=== PATIENT | female | born 1965 ===

== ENCOUNTER 2020-11-26 09:49 | Outpatient (REF) | payer OTHER, SELFPAY | END 2020-11-26 09:50 | disposition home or self-care (01) | LOC: HO.LAB 09:49 | PROVIDERS: Visit Provider Internal Medicine | DX: Z20.822 Contact with and (suspected) exposure to COVID-19 (principal) | CPT/HCPCS: C9803; U0003; U0005 ==

== ENCOUNTER 2020-12-06 09:28 | Outpatient (REF) | payer OTHER, SELFPAY | END 2020-12-06 09:29 | disposition home or self-care (01) | LOC: HO.LAB 09:28 | PROVIDERS: Visit Provider Internal Medicine | DX: Z20.822 Contact with and (suspected) exposure to COVID-19 (principal) | CPT/HCPCS: C9803; U0003; U0005 ==

== ENCOUNTER 2021-04-26 08:40 | Outpatient (REF) | payer OTHER, SELFPAY ==
[2021-04-26 10:07] LABS: Estimated Average Glucose 114 mg/dL; Hemoglobin A1c % 5.6 %
[2021-04-26 10:22] LABS: Alanine Aminotransferase 43 U/L (0-31); Albumin Level 4.3 g/dL (3.5-5.0); Alkaline Phosphatase 64 U/L (39-117); Anion Gap 10 (12-20); Aspartate Amino Transferase 29 U/L (5-31); Bilirubin Total 0.7 mg/dL (0.0-1.0); Blood Urea Nitrogen 12 mg/dL (9-16); Calcium 9.8 mg/dL (8.4-10.2); Carbon Dioxide 28 mmol/L (22-29); Chloride 107 mmol/L (96-108); Cholesterol 225 mg/dL; Estimated Glomerular Filt Rate > 60; Glucose Fasting 101 mg/dL (60-99); HDL Cholesterol 46 mg/dL; LDL Cholesterol Calculated 133 mg/dl; Potassium 4.4 mmol/L (3.3-5.1); Sodium 141 mmol/L (135-145); Total Protein 7.2 g/dL (6.5-8.0); Triglycerides 230 mg/dL
[2021-04-26 10:27] LABS: TSH reflex Free T4 1.62 uIU/mL (0.32-4.0)
== END 2021-04-26 08:41 | disposition home or self-care (01) ==
LOC: HO.LAB 08:40
PROVIDERS: PCP Physician Assistant; Visit Provider Physician Assistant
DX: Z13.29 Encounter for screening for other suspected endocrine disorder (principal); Z13.220 Encounter for screening for lipoid disorders
CPT/HCPCS: 36415; 80053; 80061; 83036; 84443

== ENCOUNTER 2021-05-02 09:44 | Outpatient (REF) | payer OTHER, SELFPAY | END 2021-05-02 09:45 | disposition home or self-care (01) | LOC: HO.LAB 09:44 | PROVIDERS: PCP Physician Assistant; Visit Provider Internal Medicine | DX: Z20.822 Contact with and (suspected) exposure to COVID-19 (principal) | CPT/HCPCS: C9803; U0003; U0005 ==

== ENCOUNTER 2021-05-16 11:53 | Outpatient (REF) | payer OTHER, SELFPAY | END 2021-05-16 11:54 | disposition home or self-care (01) | LOC: HO.LAB 11:53 | PROVIDERS: Visit Provider Internal Medicine | DX: Z20.822 Contact with and (suspected) exposure to COVID-19 (principal) | CPT/HCPCS: U0003; U0005 ==

== ENCOUNTER 2022-06-13 11:51 | Outpatient (REF) | payer OTHER, SELFPAY ==
[2022-06-15 23:22] LABS: HPV mRNA E6/E7 rflx Not Detected (Not Detected)
== END 2022-06-13 11:52 | disposition home or self-care (01) ==
LOC: HO.LNP 11:51
PROVIDERS: Visit Provider Obstetrics & Gynecology
DX: Z01.419 Encounter for gynecological examination (general) (routine) without abnormal findings (principal)
CPT/HCPCS: 87624; 88142

== ENCOUNTER 2022-07-15 09:04 | Outpatient (REF) | payer OTHER, SELFPAY ==
--- NOTE | ~2022-07-15 | MM_ITS ---
EXAMINATION: MM SCREENING DIGITAL BREAST TOMOSYNTHESIS, BILATERAL CLINICAL INFORMATION: Screening. Asymptomatic. The lifetime risk of breast cancer based on the Tyrer-Cuzick Model is 5%. COMPARISON: Mammography: 04/11/2019, 04/04/2018, 05/28/2015 TECHNIQUE: Digital breast tomosynthesis is performed in both the craniocaudal and mediolateral oblique views along with computer-aided detection (CAD). Synthesized 2D images are generated from the tomosynthesis. FINDINGS: There are scattered areas of fibroglandular density (ACR BI-RADS breast composition Category b). There are no significant masses, abnormal calcifications, or other abnormalities. Parenchymal pattern is similar to prior studies. There is incidental intramammary node again seen upper outer quadrant right breast. No developing density. Mild nipple retraction is chronic. No significant changes. MM/MM tomosynthesis screening BI IMPRESSION: No mammographic evidence of malignancy. ASSESSMENT: BI-RADS 2: Benign RECOMMENDATION: Routine annual mammography screening. This patient's information was entered into a reminder system with a target due date for their next mammogram.
== END 2022-07-15 09:05 | disposition home or self-care (01) ==
LOC: HO.MAMMO 09:04
PROVIDERS: PCP Physician Assistant; Visit Provider Obstetrics & Gynecology
DX: Z12.31 Encounter for screening mammogram for malignant neoplasm of breast (principal)
CPT/HCPCS: 77063; 77067

== ENCOUNTER 2023-05-22 09:37 | Outpatient (AMB) | payer OTHER, SELFPAY ==
--- NOTE | 2023-05-22 09:42 | MHC.PC.OV ---
Vital Signs 05/22/23 09:43 Height 5 ft 4 in Weight 141 lb BMI 24.2 BP 138/72 Blood Pressure Location Lt brachial Position Sitting Pulse 70 Pulse Source Pulse Oximeter Pulse Oximetry (%) 97 Oxygen Delivery Method Room Air Intake Visit Reasons: Annual Physical Intake Note: patient here for a physical exam, issues with throat Plasma Table Operator Required: No Accompanied by: Self / Same As Patient Allergies No Known Allergies [No Known Allergies*] Allergy (Verified 05/22/23 10:00) Medication List - Last Reconciled 05/22/23 by Sesar Prado PA-C albuterol sulfate 2.5 mg (3 mL) inhalation Q6H PRN 15 days albuterol sulfate 90 mcg/actuation (ProAir HFA) 2 puffs PO Q4H PRN ergocalciferol (vitamin D2) (Vitamin D2) 1,250 mcg PO QWEEK vitamin E (dl, acetate) 400 units PO DAILY Tobacco use date assessed: 05/22/23 Dental Screening Dental Screen Date: 05/22/23 Did you have a dental visit in the last 12 months?: No Did you have a dental problem in the last 6 months where you did not have access to dental care?: No Was dental information given to patient?: Patient has dentist HPI Annual Physical HPI Details Patient is a 57-year-old female here today for a annual physical. Patient has a past medical history significant for depression, GERD, migraines, asthma. Concerns--> Report having issues with her throat while sleeping flat. She feels her throat closes at night while sleeping. She reports these episodes only happen twice per month She attributes these symptoms to perhaps worsening asthma. PLAN: Will send for PFT testing and sleep study to evaluate for obstructive sleep apnea. [place] Sleepiness Scale score of 2 today in office. .. Asthma: REports her asthma has been stable. Report her ALAN inhaler works well. .. Migraine: Migraines have been stable, has not had any severe migraines as of late. Was using sumatriptan with good effect. Would like a refill in case migraines reoccur. .. Vitamin-D deficiency: She does use weekly vitamin-D. MAmmo: Mammogram done and July of 2022-normal .. ECOLOGY PROFESSOR: Seeing ECOLOGY PROFESSOR here in [facility] up to date Colon cancer screening: Had a sister whom from colon cancer at age 40. needs colonoscopy [facility] Medical History Asthma Surgical History H/O tubal ligation Family History Sister Colon cancer, Onset Age: 40 Social History (Updated 05/22/23 @ 10:10 by Sesar Prado PA-C) Housing: Apartment Alcohol intake: never Patient Tobacco Use Status: Former Tobacco user e-Cigarette/Vaping Use: Never Used Second Hand Smoke Exposure: No service: No Current occupational status: unemployed Cognitive needs: No Hearing needs: No Vision needs: Yes Female Reproductive History Menstrual Age of Menarche: 11 Questionnaire PHQ-9 Over the last 2 weeks, how often have you been bothered by any of the following problems? 1. Little interest or pleasure in doing things: not at all 2. Feeling down, depressed, or hopeless: several days 3. Trouble falling or staying asleep, or sleeping too much: not at all 4. Feeling tired or having little energy: several days 5. Poor appetite or overeating: not at all 6. Feeling bad about yourself - or that you are a failure or have let yourself or your family down: not at all 7. Trouble concentrating on things, such as reading the newspaper or watching television: not at all 8. Moving or speaking so slowly that other people could have noticed. Or the opposite - being so fidgety or restless that you have been moving around a lot more than usual: not at all 9. Thoughts that you would be better off or of hurting yourself in some way: not at all Total score: 2 Depression Screening Interpretation: Negative Depression Screening Done: Yes 31836 - PHQ-9 Billing: Yes Source: Developed by Drs. Lance Arellano, Michaelle Valverde, Jun Rios and colleagues, with an educational faizan from [employer]. Thrive Questionnaire Date Thrive assessed: 05/22/23 I am a: Patient What is your living situation today?: I have a steady place to live Within the past 12 months, did the food you bought not last and you didn't have the money to get more?: Never true Within the past 12 months, did you worry whether your food would run out before you got money to buy more?: Never true Do you have trouble paying for medicines?: No Do you have trouble getting transportation to medical appointments?: No Do you have trouble paying your heating and electricity bill?: No Do you have trouble taking care of your child, family member or friend?: No Do you have trouble with day-to-day activities such as bathing, preparing meals, shopping, managing finances, etc.?: No Are you currently unemployed and looking for a job?: No Are you interested in more education?: No Please select the resources that you would like help with: None Currently or been in a relationship where the following occur: no concerns reported AUDIT C Alcohol Use Questionnaire (AUDIT-C) 1. How often do you have a drink containing alcohol?: Never Total Score: 0 ROMANA-7 AMB Questionnaire ROMANA-7 Date ROMANA - 7 assessed: 05/22/23 Feeling nervous, anxious, or on edge: 0 = Not at all Not being able to stop or control worryin = Not at all Worrying too much about different things: 0 = Not at all Trouble relaxin = Not at all Being so restless that it is hard to sit still: 0 = Not at all Becoming easily annoyed or irritable: 0 = Not at all Feeling afraid as if something awful might happen: 0 = Not at all Total ROMANA-7 score (0-4 normal; 5-9 mild; 10-14 moderate; 15-21 severe): 0 Source: Developed by Drs. Lance Arellano, Michaelle Valverde, Jun Rios and colleagues, with an educational faizan from [employer]. ROMANA-7 Assessment Billing ROMANA-7 Assessment Tool: ROMANA-7 Assessment 05581 Review of Systems Const Denies body aches, Denies chills, Denies excessive sweating, Denies fatigue, Denies fever(s) and Denies headache(s) Eyes Denies blurry vision ENT Denies dysphagia, Denies vertigo, Denies dizziness, Denies headache(s), Denies hearing loss and Denies tinnitus Card Denies chest pain, Denies chest pain with activity, Denies syncope, Denies irregular heart rhythm and Denies dyspnea Resp Denies chest congestion, Denies cough, Denies hemoptysis, Denies dyspnea and Denies wheezing GI Denies abdominal pain, Denies melena, Denies hematochezia, Denies coffee ground emesis, Denies dysphagia, Denies diarrhea, Denies nausea and Denies vomiting Denies urinary frequency, Denies dysuria, Denies urinary hesitancy and Denies urinary urgency Musc Denies arthralgias, Denies limited range of motion, Denies muscle cramps and Denies muscle weakness Skin/Breast Denies rash and Denies skin ulcer Neuro Denies Abnormal speech present, Denies confusion, Denies vertigo, Denies dizziness, Denies syncope, Denies headache(s), Denies memory loss and Denies seizure-like activity Psych Reports abnormal sleep pattern, Denies anxiety, Denies confusion, Denies depression, Denies memory loss, Denies panic attacks and Denies paranoia Endo Denies excessive sweating, Denies fatigue, Denies flushing, Denies polydipsia and Denies polyuria Aller/Immun Denies wheezing Physical exam (Primary Care) Vital Signs: Last Vital Signs Pulse 70 05/22/23 09:43 BP 138/72 05/22/23 09:43 Pulse Ox 97 05/22/23 09:43 Oxygen Delivery Method Room Air 05/22/23 09:43 BMI result Body Mass Index 24.2 Tobacco/Smoking Status: Tobacco use Status Tobacco use date assessed 05/22/23 05/22/23 09:49 Patient Tobacco Use Status Former Tobacco user 05/22/23 10:10 e-Cigarette/Vaping Use Never Used 05/22/23 10:10 PHQ-9: PHQ-9 Score PHQ-9: Total score 2 05/22/23 10:01 Depression Screening Interpretation: Negative Thrive Assessment: Date of Thrive Assessment Date Thrive assessed 05/22/23 05/22/23 09:49 Currently or been in a relationship where the following occur: no concerns reported Const General: cooperative, comfortable, no acute distress, alert and awake; No confusion Orientation/consciousness: oriented to person, oriented to place, patient oriented x3 and No confusion HENMT Head: Yes normocephalic Ears: external ears normal and TM's normal bilaterally Face and sinus: No sinus tenderness Mouth: Normal oral and palatal mucosa present and tongue normal Teeth and gingiva: dentition normal and gingiva normal Throat: Yes posterior oropharynx normal, Yes tonsils normal and Yes uvula midline Eyes Conjunctivae: conjunctivae normal Sclerae: sclerae normal Pupils: Equal, round and reactive pupils present EOM: EOMs intact bilaterally Direct Ophthalmoscopy: No no photophobia Neck Neck: Yes no lymphadenopathy, No tender and Yes no JVD Thyroid: Thyroid normal Carotids: no bruits Chest Chest palpation & inspection: no tenderness Resp Effort & Inspection: normal respiratory effort, no audible wheezes, not labored and no stridor Auscultation: no crackles, no rales, no rhonchi and no wheezes Cardio Jugular venous distension: no JVD Rate: regular rate, not bradycardic and not tachycardic Rhythm: regular rhythm Bruits: no carotid bruits Peripheral pulses: Peripheral pulses 2+ throughout GI Inspection: Yes normal to inspection, No abdominal wall ecchymosis and No visible herniation Palpation (GI): Soft to palpation, nontender, no guarding, not rigid and No hepatosplenomegaly present Auscultation: normoactive bowel sounds General: Yes no CVA tenderness Back/Spine/Pelvis Back: no CVA tenderness and No back tenderness Cervical Spine: cervical ROM normal Thoracic/Lumbar Spine: thoracic and lumbar spine normal to inspection, straight leg raise negative bilaterally, No thoraco-lumbar ROM limited and No lumbar spinal tenderness Skin Lesions: no lesions Rashes: no rashes Wounds: no wounds Neuro General: oriented to person, oriented to place, patient oriented x3, CN's II-XI intact bilaterally and No confusion Cranial nerves: Yes Equal, round and reactive pupils present and Yes Normal accommodation reflex present Cognition (Neuro): normal cognition Speech: No Abnormal speech present Gait exam (Neuro): Normal gait present Motor exam (neuro): 5/5 motor strength present throughout Extrem Right upper extremity: full ROM; no cyanosis Left upper extremity: full ROM; no cyanosis Right lower extremity: no edema Left lower extremity: no edema Psych Appearance: grossly normal Mental Status: mental status grossly normal Affect: normal affect Attitude: cooperative Thought process: Normal thought process present Office Procedures Flu Questionnaire Does the patient have a severe egg allergy?: No Immunizations flu vacc [id number] 6mos up(PF) 60 mcg(15 mcgx4)/0.5 mL IM syringe Performing Provider: Sesar Prado PA-C [facility] Documented (not given) by: BILLIE Shannon on 05/22/23 09:50 Reason Not Given: Patient Refused Assessment and Plan Assessment & Plan (1) Annual physical exam: Code(s): Z00.00 - Encounter for general adult medical examination without abnormal findings (2) Family history of colon cancer: Code(s): Z80.0 - Family history of malignant neoplasm of digestive organs Plan: As per HPI had a sister whom from colon cancer at age 40. Needs screening colonoscopy (3) Asthma: Code(s): J45.909 - Unspecified asthma, uncomplicated Qualifiers: Asthma severity: mild Asthma persistence: intermittent Asthma complication type: uncomplicated Qualified Code(s): J45.20 - Mild intermittent asthma, uncomplicated Plan: Patient does use an albuterol inhaler on a p.r.n. basis with good effect. She denies any recent exacerbations of her asthma. She does report some nighttime awakenings with some pulmonary/throat issues. (4) Screening for diabetes mellitus (DM): Code(s): Z13.1 - Encounter for screening for diabetes mellitus (5) Vitamin D deficiency: Code(s): E55.9 - Vitamin D deficiency, unspecified Plan: Continues on once weekly vitamin-D. Will recheck vitamin-D level. (6) BREANA (obstructive sleep apnea): Code(s): G47.33 - Obstructive sleep apnea (adult) (pediatric) Plan: [place] Sleepiness Scale score of 2. (7) Insomnia: Code(s): G47.00 - Insomnia, unspecified Qualifiers: Insomnia type: primary Qualified Code(s): F51.01 - Primary insomnia Plan: She continues to suffer with insomnia. Has a hard time getting to sleep. Has tried melatonin and sleep hygiene techniques without much relief. She is willing to try hydroxyzine 10 mg 1 hour before bed. Orders: Orders RT home sleep study Today G47.33 - Obstructive sleep apnea (adult) (pediatric) Comprehensive [place]. Panel Fast Today Z13.1 - Encounter for screening for diabetes mellitus Complete Blood Count no Diff Today J45.909 - Unspecified asthma, uncomplicated Vitamin D 25-OH Total Today E55.9 - Vitamin D deficiency, unspecified PFT pulmonary function test Today J45.909 - Unspecified asthma, uncomplicated Influenza [id number] Immunization Today Z23 - Encounter for immunization TSH reflex Free T4 Today R63.5 - Abnormal weight gain Referrals Gastroenterology Referral Z80.0 - Family history of malignant neoplasm of digestive organs Medications: New hydroxyzine HCl 10 mg PO BEDTIME 15 days 15 tabs 0RF F41.9 - Anxiety disorder, unspecified, F51.01 - Primary insomnia Refilled albuterol sulfate 2.5 mg (3 mL) inhalation Q6H 15 days PRN 180 mL 0RF shortness of breath or wheezing J45.909 - Unspecified asthma, uncomplicated Coding Level of Care Code Est Pt Prev Care 40-64y(16576) Diagnoses Annual physical exam Z00.00 Family history of colon cancer Z80.0 Mild intermittent asthma without complication J45.20 Asthma severity: mild Asthma persistence: intermittent Asthma complication type: uncomplicated Screening for diabetes mellitus (DM) Z13.1 Vitamin D deficiency E55.9 BREANA (obstructive sleep apnea) G47.33 Primary insomnia F51.01 Insomnia type: primary Additional Codes ROMANA-7 Assessment Billing - ROMANA-7 Assessment Tool: ROMANA-7 Assessment [id number] ([id number])
[2023-05-22 09:43] VITALS: BP 138/72; PULSE 70; O2SAT 97; BMI 24.2
== END 2023-05-22 10:30 | disposition home or self-care (01) ==
PROVIDERS: PCP Physician Assistant; Visit Provider Physician Assistant
DX: Z00.00 Encounter for general adult medical examination without abnormal findings (principal); J45.20 Mild intermittent asthma, uncomplicated; G47.33 Obstructive sleep apnea (adult) (pediatric); E55.9 Vitamin D deficiency, unspecified; Z80.0 Family history of malignant neoplasm of digestive organs; F51.01 Primary insomnia
CPT/HCPCS: 99396

== ENCOUNTER 2023-10-27 09:55 | Outpatient (REF) | payer OTHER, SELFPAY | END 2023-10-27 09:56 | disposition home or self-care (01) | LOC: HO.MAMMO 09:55 | PROVIDERS: PCP Physician Assistant; Visit Provider Physician Assistant | DX: Z12.31 Encounter for screening mammogram for malignant neoplasm of breast (principal) | CPT/HCPCS: 77063; 77067 ==

== ENCOUNTER → 2023-10-27 10:45 | Outpatient (BNV) | payer OTHER, SELFPAY | PROVIDERS: PCP Physician Assistant; Visit Provider Radiology Diagnostic Radiology | DX: Z12.31 Encounter for screening mammogram for malignant neoplasm of breast (principal) | CPT/HCPCS: 77063; 77067 ==

== ENCOUNTER 2023-12-18 09:21 | Outpatient (AMB) | payer OTHER, SELFPAY ==
--- NOTE | 2023-12-18 09:23 | MHC.PC.OV ---
Vital Signs 12/18/23 09:30 Height 5 ft 4 in Weight 142 lb BMI 24.4 BP 126/70 Blood Pressure Location Lt brachial Position Sitting Pulse 8 L Pulse Source Pulse Oximeter Pulse Oximetry (%) 96 Oxygen Delivery Method Room Air Intake Visit Reasons: Can not hear out of left ear Intake Note: The patient presents with a recent onset of left ear hearing loss, accompanied by feelings of imbalance over the last 48 hours. 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 Accompanied by: Self / Same As Patient Allergies No Known Allergies [No Known Allergies*] Allergy (Verified 12/18/23 09:39) Medication List - Last Reconciled 12/18/23 by Sesar Prado PA-C albuterol sulfate 90 mcg/actuation (ProAir HFA) 2 puffs PO Q4H PRN albuterol sulfate 2.5 mg (3 mL) inhalation Q6H PRN 15 days ergocalciferol (vitamin D2) (Vitamin D2) 1,250 mcg PO QWEEK hydroxyzine HCl 10 mg PO BEDTIME 15 days vitamin E (dl, acetate) 400 units PO DAILY Tobacco use date assessed: 12/18/23 Dental Screening Dental Screen Date: 12/18/23 Did you have a dental visit in the last 12 months?: Yes Did you have a dental problem in the last 6 months where you did not have access to dental care?: No Was dental information given to patient?: Patient has dentist HPI Can not hear out of left ear HPI Details Patient is a 58-year-old female here today for problem visit. Patient has a past medical history significant for depression, GERD, migraines, asthma. She reports having an issue with hearing at over left ear and some balance disruption over the last 5 days. No ear pain or drainage. [facility] Medical History Asthma Surgical History H/O tubal ligation Family History Sister Colon cancer, Onset Age: 40 Social History Housing: Apartment Alcohol intake: never Patient Tobacco Use Status: Former Tobacco user e-Cigarette/Vaping Use: Never Used Second Hand Smoke Exposure: No service: No Current occupational status: unemployed Cognitive needs: No Hearing needs: No Vision needs: Yes Female Reproductive History Menstrual Age of Menarche: 11 Questionnaire PHQ-9 Over the last 2 weeks, how often have you been bothered by any of the following problems? 1. Little interest or pleasure in doing things: not at all 2. Feeling down, depressed, or hopeless: not at all 3. Trouble falling or staying asleep, or sleeping too much: not at all 4. Feeling tired or having little energy: not at all 5. Poor appetite or overeating: not at all 6. Feeling bad about yourself - or that you are a failure or have let yourself or your family down: not at all 7. Trouble concentrating on things, such as reading the newspaper or watching television: not at all 8. Moving or speaking so slowly that other people could have noticed. Or the opposite - being so fidgety or restless that you have been moving around a lot more than usual: not at all 9. Thoughts that you would be better off or of hurting yourself in some way: not at all Total score: 0 Depression Screening Interpretation: Negative Depression Screening Done: Yes 21052 - PHQ-9 Billing: Yes Source: Developed by Drs. Lance Arellano, Michaelle Valverde, Jun Rios and colleagues, with an educational faizan from [employer]. Thrive Questionnaire Date Thrive assessed: 12/18/23 I am a: Patient What is your living situation today?: I have a steady place to live Within the past 12 months, did the food you bought not last and you didn't have the money to get more?: Never true Within the past 12 months, did you worry whether your food would run out before you got money to buy more?: Never true Do you have trouble paying for medicines?: No Do you have trouble getting transportation to medical appointments?: No Do you have trouble paying your heating and electricity bill?: No Do you have trouble taking care of your child, family member or friend?: No Do you have trouble with day-to-day activities such as bathing, preparing meals, shopping, managing finances, etc.?: No Are you currently unemployed and looking for a job?: No Are you interested in more education?: No Please select the resources that you would like help with: None Currently or been in a relationship where the following occur: no concerns reported THRIVE Score: 0 AUDIT C Alcohol Use Questionnaire (AUDIT-C) 1. How often do you have a drink containing alcohol?: Never 3. How often do you have six or more drinks on one occasion?: Never Total Score: 0 ROMANA-7 AMB Questionnaire ROMANA-7 Date ROMANA - 7 assessed: 12/18/23 Feeling nervous, anxious, or on edge: 0 = Not at all Not being able to stop or control worryin = Not at all Worrying too much about different things: 0 = Not at all Trouble relaxin = Not at all Being so restless that it is hard to sit still: 0 = Not at all Becoming easily annoyed or irritable: 0 = Not at all Feeling afraid as if something awful might happen: 0 = Not at all Total ROMANA-7 score (0-4 normal; 5-9 mild; 10-14 moderate; 15-21 severe): 0 Source: Developed by Drs. Lance Arellano, Michaelle Valverde, Jun Rios and colleagues, with an educational faizan from [employer]. ROMANA-7 Assessment Billing ROMANA-7 Assessment Tool: ROMANA-7 Assessment 10704 Review of Systems Const Denies headache(s) Eyes Denies loss of vision ENT Denies vertigo, Denies dizziness, Denies headache(s) and Denies sore throat Card Denies chest pain, Denies leg edema and Denies lightheadedness Resp Denies cough, Denies hemoptysis and Denies wheezing GI Denies abdominal pain, Denies melena, Denies constipation, Denies diarrhea and Denies vomiting Denies urinary frequency, Denies dysuria and Denies urinary urgency Musc Denies arthralgias, Denies joint swelling, Denies numbness and Denies tingling Neuro Denies Abnormal speech present, Denies behavioral changes, Denies vertigo, Denies dizziness, Denies headache(s), Denies loss of vision, Denies memory loss, Denies numbness and Denies tingling Psych Denies anxiety, Denies behavioral changes, Denies depression, Denies memory loss and Denies panic attacks Favio/Lymph Denies easy bleeding and Denies easy bruising Aller/Immun Denies wheezing Physical exam (Primary Care) Vital Signs: Last Vital Signs Pulse 8 L 12/18/23 09:30 BP 126/70 12/18/23 09:30 Pulse Ox 96 12/18/23 09:30 Oxygen Delivery Method Room Air 12/18/23 09:30 BMI result Body Mass Index 24.4 Tobacco/Smoking Status: Tobacco use Status Tobacco use date assessed 12/18/23 12/18/23 09:37 Patient Tobacco Use Status Former Tobacco user 12/18/23 09:23 e-Cigarette/Vaping Use Never Used 12/18/23 09:23 PHQ-9: PHQ-9 Score PHQ-9: Total score 0 12/18/23 09:42 Depression Screening Interpretation: Negative Thrive Assessment: Date of Thrive Assessment Date Thrive assessed 12/18/23 12/18/23 09:37 Currently or been in a relationship where the following occur: no concerns reported Const General: healthy appearing, no acute distress, alert and awake Nutritional Appearance: well nourished Orientation/consciousness: oriented to person, oriented to place and oriented to time HENMT Other: LEFT EXTERNAL CANAL WITH CERUMEN IMPACTION. SLIGHT ERYTHEMA OF THE EXTERNAL CANAL Ears: TM's normal bilaterally General nose exam: Normal nasal mucous membranes and turbinates present Eyes Conjunctivae: conjunctivae normal Sclerae: sclerae normal Pupils: Equal, round and reactive pupils present Neck Neck: Yes no lymphadenopathy and Yes no JVD Thyroid: Thyroid normal Carotids: no bruits Resp Effort & Inspection: normal respiratory effort and not tachypneic Auscultation: no crackles, no rales, no rhonchi and no wheezes Cardio Rate: regular rate Rhythm: regular rhythm Heart sounds: no murmurs and normal S1 and S2 GI Palpation (GI): Soft to palpation, nontender, no hepatomegaly and no splenomegaly Auscultation: normal bowel sounds Skin General skin exam: no rashes or lesions noted and dry skin Neuro General: oriented to person, oriented to place and oriented to time Cranial nerves: Yes Equal, round and reactive pupils present Speech: No Abnormal speech present Gait exam (Neuro): Normal gait present Motor exam (neuro): no tremor noted Extrem Right upper extremity: full ROM Left upper extremity: full ROM Right lower extremity: full ROM; no edema Left lower extremity: full ROM; no edema Psych Mental Status: mental status grossly normal Speech and movement: Normal speech and movement present Affect: normal affect Attitude: cooperative Thought process: Normal thought process present Office Procedures Cerumen Removal From which ear canal was the cerumen removed: left Removal: otoscope w/curette Notes: no complications [id number] Irrigation/Lavage Assessment and Plan Assessment & Plan (1) Left ear impacted cerumen: Code(s): H61.22 - Impacted cerumen, left ear Plan: Patient with left cerumen impaction. Cleared after lavage. Patient tolerated procedure well though was left with some erythema of the external canal. Will supply patient with antibiotic ear drops. (2) Otitis externa, left: Code(s): H60.92 - Unspecified otitis externa, left ear Qualifiers: Chronicity: acute Otitis externa type: unspecified type Qualified Code(s): H60.502 - Unspecified acute noninfective otitis externa, left ear Medications: New [id number] 3.5-10,000-1 mg/mL-unit/mL-% 4 drps otic (ear) left Q8H 10 mL 0RF 7 days H61.22 - Impacted cerumen, left ear Coding Level of Care Code Est Pt Level 3 (69589) Diagnoses Left ear impacted cerumen H61.22 Acute otitis externa of left ear, unspecified type H60.502 Chronicity: acute Otitis externa type: unspecified type CPT Codes Office Procedure - CPT: 47341-Gqx Irrigation/Lavage ([id number]) Additional Codes ROMANA-7 Assessment Billing - ROMANA-7 Assessment Tool: ROMANA-7 Assessment 88190 ([id number])
[2023-12-18 09:30] VITALS: BP 126/70; PULSE 8; O2SAT 96; BMI 24.4
== END 2023-12-18 09:59 | disposition home or self-care (01) ==
PROVIDERS: PCP Physician Assistant; Visit Provider Physician Assistant
DX: H61.22 Impacted cerumen, left ear (principal)
CPT/HCPCS: 69210; 99213

== ENCOUNTER 2024-05-27 09:06 | Outpatient (AMB) | payer OTHER, SELFPAY ==
[2024-05-27 09:34] VITALS: BP 110/72; PULSE 85; O2SAT 98; BMI 23.2
--- NOTE | 2024-05-27 09:34 | A.OFFPC_ITS ---
Vital Signs 05/27/24 09:34 Height 5 ft 4 in Weight 135 lb 6 oz BMI 23.2 BP 110/72 Blood Pressure Location Lt brachial Position Sitting Pulse 85 Pulse Source Pulse Oximeter Pulse Oximetry (%) 98 Oxygen Delivery Method Room Air Intake Visit Reasons: pe Intake Note: Patient is here today for a physical. Pt declined flu vaccine today. Cyber Security Required: No Accompanied by: Self / Same As Patient Allergies No Known Allergies [No Known Allergies*] Allergy (Verified 05/27/24 09:55) Medication List - Last Reconciled 05/27/24 by Sesar Prado PA-C albuterol sulfate 90 mcg/actuation (ProAir HFA) 2 puffs PO Q4H PRN albuterol sulfate 2.5 mg (3 mL) inhalation Q6H PRN 15 days ergocalciferol (vitamin D2) (Vitamin D2) 1,250 mcg PO QWEEK hydroxyzine HCl 10 mg PO BEDTIME 15 days [id number]-[id number]-UV 3.5-10,000-1 mg/mL-unit/mL-% 4 drps otic (ear) left Q8H 7 days vitamin E (dl, acetate) 400 units PO DAILY Tobacco use date assessed: 12/18/23 Dental Screening Dental Screen Date: 12/18/23 HPI pe HPI Details Patient is a 58-year-old female here today for a annual physical. Patient has a past medical history significant for depression, GERD, migraines, asthma. Anxiety: Patient reports she has been dealing with more anxiety as of late. Dean 7 score positive moderate anxiety. She reports having difficulty with sleeping due to racing thoughts. She does have some personal issues going on at home. She is willing to restart hydroxyzine before bed to help sleep. She is not interested in mental health therapy at this time. .. Asthma: REports her asthma has been stable. Report her ALAN inhaler works well. Unfortunately she reports smoking cigarettes again. .. Migraine: Migraines have been stable, has not had any severe migraines as of late. Was using sumatriptan with good effect. Would like a refill in case migraines reoccur. .. Vitamin-D deficiency: She does use weekly vitamin-D. MAmmo: Mammogram done in October of 2023 BI-RADS 1 .. 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 VAccine: declines COVID or FLu, UTD with Tdap Colon cancer screening: Had a sister whom from colon cancer at age 40. needs colonoscopy PFSH Medical History Asthma Surgical History H/O tubal ligation Family History Sister Colon cancer, Onset Age: 40 Social History (Updated 05/27/24 @ 10:00 by Sesar Prado PA-C) Housing: Apartment Alcohol intake: current Alcohol intake frequency: a few times a month Alcohol type: beer Patient Tobacco Use Status: Current everyday Tobacco user e-Cigarette/Vaping Use: Never Used Second Hand Smoke Exposure: No service: No Current occupational status: unemployed Cognitive needs: No Hearing needs: No Vision needs: Yes Female Reproductive History Menstrual Age of Menarche: 11 Questionnaire PHQ-9 Over the last 2 weeks, how often have you been bothered by any of the following problems? 1. Little interest or pleasure in doing things: several days 2. Feeling down, depressed, or hopeless: several days 3. Trouble falling or staying asleep, or sleeping too much: nearly every day 4. Feeling tired or having little energy: more than half the days 5. Poor appetite or overeating: nearly every day 6. Feeling bad about yourself - or that you are a failure or have let yourself or your family down: several days 7. Trouble concentrating on things, such as reading the newspaper or watching television: several days 8. Moving or speaking so slowly that other people could have noticed. Or the opposite - being so fidgety or restless that you have been moving around a lot more than usual: not at all 9. Thoughts that you would be better off or of hurting yourself in some way: not at all Total score: 12 Depression Screening Interpretation: Positive Depression Screening Follow-up: Existing condition Depression Screening Done: Yes 07777 - PHQ-9 Billing: Yes Source: Developed by Drs. Lance Arellano, Michaelle Valverde, Jun Rios and colleagues, with an educational faizan from [employer]. Thrive Questionnaire Date Thrive assessed: 05/27/24 I am a: Patient What is your living situation today?: I have a steady place to live Within the past 12 months, did the food you bought not last and you didn't have the money to get more?: Often true Within the past 12 months, did you worry whether your food would run out before you got money to buy more?: Often true Do you have trouble paying for medicines?: I choose not to answer this question Do you have trouble getting transportation to medical appointments?: Yes Do you have trouble paying your heating and electricity bill?: Yes Do you have trouble taking care of your child, family member or friend?: I choose not to answer this question Do you have trouble with day-to-day activities such as bathing, preparing meals, shopping, managing finances, etc.?: No Are you currently unemployed and looking for a job?: No Are you interested in more education?: No Please select the resources that you would like help with: None Currently or been in a relationship where the following occur: No concerns reported THRIVE Score: 4 AUDIT C Alcohol Use Questionnaire (AUDIT-C) 1. How often do you have a drink containing alcohol?: Monthly or less 2. How many drinks containing alcohol do you have on a typical day when you are drinking?: 1 or 2 3. How often do you have six or more drinks on one occasion?: Never Total Score: 1 DEAN-7 AMB Questionnaire DEAN-7 Date DEAN - 7 assessed: 05/27/24 Feeling nervous, anxious, or on edge: 3 = Nearly every day Not being able to stop or control worryin = Several days Worrying too much about different things: 3 = Nearly every day Trouble relaxin = Nearly every day Being so restless that it is hard to sit still: 0 = Not at all Becoming easily annoyed or irritable: 0 = Not at all Feeling afraid as if something awful might happen: 3 = Nearly every day Total DEAN-7 score (0-4 normal; 5-9 mild; 10-14 moderate; 15-21 severe): 13 Source: Developed by Drs. Lance Arellano, Michaelle Valverde, Jun Rios and colleagues, with an educational faizan from [employer]. DEAN-7 Assessment Billing DEAN-7 Assessment Tool: DEAN-7 Assessment 56951 ACT Questionnaire In the past 4 weeks, how much of the time did your asthma keep you from getting as much done at work, school or at home?: None of the time During the past 4 weeks, how often have you had shortness of breath?: 1-2 times a week During the past 4 weeks, how often did your asthma symptoms wake you up at night or earlier than usual in the morning?: Not at all During the past 4 weeks, how often have you had to use your rescue inhaler or nebulizer medication?: Not at all How would you rate your asthma control during the past 4 weeks?: Completely controlled ACT Interpretation: Negative Score: 24 Review of Systems Const Denies body aches, Denies chills, Denies excessive sweating, Denies fatigue, Denies fever(s) and Denies headache(s) Eyes Denies blurry vision ENT Denies dysphagia, Denies vertigo, Denies dizziness, Denies headache(s), Denies hearing loss and Denies tinnitus Card Denies chest pain, Denies chest pain with activity, Denies syncope, Denies irregular heart rhythm and Denies dyspnea Resp Denies chest congestion, Denies cough, Denies hemoptysis, Denies dyspnea and Denies wheezing GI Denies abdominal pain, Denies melena, Denies hematochezia, Denies coffee ground emesis, Denies dysphagia, Denies diarrhea, Denies nausea and Denies vomiting Denies urinary frequency, Denies dysuria, Denies urinary hesitancy and Denies urinary urgency Musc Denies arthralgias, Denies limited range of motion, Denies muscle cramps and Denies muscle weakness Skin/Breast Denies rash and Denies skin ulcer Neuro Denies Abnormal speech present, Denies confusion, Denies vertigo, Denies dizziness, Denies syncope, Denies headache(s), Denies memory loss and Denies seizure-like activity Psych Denies anxiety, Denies confusion, Denies depression, Denies memory loss, Denies panic attacks and Denies paranoia Endo Denies excessive sweating, Denies fatigue, Denies flushing, Denies polydipsia and Denies polyuria Aller/Immun Denies wheezing Physical exam (Primary Care) Vital Signs: Last Vital Signs Pulse 85 05/27/24 09:34 BP 110/72 10/15/24 09:34 Pulse Ox 98 05/27/24 09:34 Oxygen Delivery Method Room Air 05/27/24 09:34 BMI result Body Mass Index 23.2 Tobacco/Smoking Status: Tobacco use Status Tobacco use date assessed 12/18/23 05/27/24 09:39 Patient Tobacco Use Status Former Tobacco user 05/27/24 09:39 e-Cigarette/Vaping Use Never Used 05/27/24 09:39 Are you ready to quit: Yes Tobacco cessation counseling provided: Yes Items discussed: Nicotine replacement Relapse Prevention: discussed the importance of a supportive environment, discussed negative mood or depression after quitting, weight gain after smoking is common and discussed dietary, exercise and/or lifestyle changes Number of minutes spent counselin CPT code: 57283 - 4-10 Minutes PHQ-9: PHQ-9 Score PHQ-9: Total score 12 05/27/24 09:40 Depression Screening Interpretation: Positive Depression Screening Follow-up: Existing condition Thrive Assessment: Date of Thrive Assessment Date Thrive assessed 05/27/24 05/27/24 09:39 Currently or been in a relationship where the following occur: No concerns reported Const General: cooperative, comfortable, no acute distress, alert and awake; No confusion Orientation/consciousness: oriented to person, oriented to place, patient oriented x3 and No confusion HENMT Head: Yes normocephalic Ears: external ears normal and TM's normal bilaterally Face and sinus: No sinus tenderness Mouth: Normal oral and palatal mucosa present and tongue normal Teeth and gingiva: dentition normal and gingiva normal Throat: Yes posterior oropharynx normal, Yes tonsils normal and Yes uvula midline Eyes Conjunctivae: conjunctivae normal Sclerae: sclerae normal Pupils: Equal, round and reactive pupils present EOM: EOMs intact bilaterally Direct Ophthalmoscopy: No no photophobia Neck Neck: Yes no lymphadenopathy, No tender and Yes no JVD Thyroid: Thyroid normal Carotids: no bruits Chest Chest palpation & inspection: no tenderness Resp Effort & Inspection: normal respiratory effort, no audible wheezes, not labored and no stridor Auscultation: no crackles, no rales, no rhonchi and no wheezes Cardio Jugular venous distension: no JVD Rate: regular rate, not bradycardic and not tachycardic Rhythm: regular rhythm Bruits: no carotid bruits Peripheral pulses: Peripheral pulses 2+ throughout GI Inspection: Yes normal to inspection, No abdominal wall ecchymosis and No visible herniation Palpation (GI): Soft to palpation, nontender, no guarding, not rigid and No hepatosplenomegaly present Auscultation: normoactive bowel sounds General: Yes no CVA tenderness Back/Spine/Pelvis Back: no CVA tenderness and No back tenderness Cervical Spine: cervical ROM normal Thoracic/Lumbar Spine: thoracic and lumbar spine normal to inspection, straight leg raise negative bilaterally, No thoraco-lumbar ROM limited and No lumbar spinal tenderness Skin Lesions: no lesions Rashes: no rashes Wounds: no wounds Neuro General: oriented to person, oriented to place, patient oriented x3, CN's II-XI intact bilaterally and No confusion Cranial nerves: Yes Equal, round and reactive pupils present and Yes Normal accommodation reflex present Cognition (Neuro): normal cognition Speech: No Abnormal speech present Gait exam (Neuro): Normal gait present Motor exam (neuro): 5/5 motor strength present throughout Extrem Right upper extremity: full ROM; no cyanosis Left upper extremity: full ROM; no cyanosis Right lower extremity: no edema Left lower extremity: no edema Psych Appearance: grossly normal Mental Status: mental status grossly normal Affect: normal affect Attitude: cooperative Thought process: Normal thought process present Coding Level of Care Code Est Pt Prev Care 40-64y(65416) Diagnoses Annual physical exam Z00.00 Mild intermittent asthma without complication J45.20 Asthma severity: mild Asthma persistence: intermittent Asthma complication type: uncomplicated Screening for diabetes mellitus (DM) Z13.1 DEAN (generalized anxiety disorder) F41.1 Family history of colon cancer Z80.0 MDD (major depressive disorder), recurrent episode, moderate F33.1 Tobacco use disorder F17.200 Additional Codes DEAN-7 Assessment Billing - DEAN-7 Assessment Tool: DEAN-7 Assessment 48380 ([id number]) Asthma Control Questionnaire - ACT Interpretation: Negative ([id number]) Vital Signs *Quality* - CPT code: 28183 - 4-10 Minutes ([id number]) Assessment & Plan Assessment & Plan (1) Annual physical exam: Code(s): Z00.00 - Encounter for general adult medical examination without abnormal findings Category: Medical Plan: As per HPI (2) Asthma: Code(s): J45.909 - Unspecified asthma, uncomplicated Category: Medical Qualifiers: Asthma severity: mild Asthma persistence: intermittent Asthma complication type: uncomplicated Qualified Code(s): J45.20 - Mild intermittent asthma, uncomplicated Plan: Patient does report some worsening her asthma lately since starting to smoke again. She also attributes her asthma symptoms somewhat to her anxiety as well. She does not need a refill on her albuterol inhaler and albuterol solution for nebulizer. (3) Screening for diabetes mellitus (DM): Code(s): Z13.1 - Encounter for screening for diabetes mellitus Category: Medical Plan: As per HPI (4) DAEN (generalized anxiety disorder): Code(s): F41.1 - Generalized anxiety disorder Category: Medical Plan: Patient's DEAN-7 score positive for anxiety which has been existing condition for her. She reports her anxiety has gotten worse over the last few months since having some personal issues at home and moving into a new apartment. She is interested in restarting hydroxyzine to help her sleep. (5) Family history of colon cancer: Code(s): Z80.0 - Family history of malignant neoplasm of digestive organs Category: Medical Plan: As per HPI patient sister had been diagnosed with colon cancer at age 40. She needs repeat screening colonoscopy (6) MDD (major depressive disorder), recurrent episode, moderate: Code(s): F33.1 - Major depressive disorder, recurrent, moderate Category: Medical Plan: Patient's PHQ-9 score positive for moderate depression which has been existing condition for her. She is not interested in starting daily SSRI therapy or cognitive behavioral therapy at this time. (7) Tobacco use disorder: Code(s): F17.200 - Nicotine dependence, unspecified, uncomplicated Category: Medical Plan: Patient does admit to smoking cigarettes as of late due to stress in her anxiety. She has not been buying any packs of cigarettes though does smoke when she has a few drinks. She does understand she needs to completely quit again. Orders: Orders Complete Blood Count no Diff Today Z13.1 - Encounter for screening for diabetes mellitus Vitamin D 25-OH Total Today E55.9 - Vitamin D deficiency, unspecified Comprehensive [place]. Panel Fast Today Z13.1 - Encounter for screening for diabetes mellitus Referrals Gastroenterology Referral Z80.0 - Family history of malignant neoplasm of digestive organs Medications: New hydroxyzine HCl 25 mg PO BEDTIME 30 days PRN 30 tabs 3RF sleep F51.01 - Primary insomnia Changed From albuterol sulfate 90 mcg/actuation (ProAir HFA) 2 puffs PO Q4H PRN 8.5 grams 2RF for wheezing J45.20 - Mild intermittent asthma, uncomplicated To albuterol sulfate 90 mcg/actuation (Ventolin HFA) 2 puffs PO Q4H 30 days PRN 8.5 grams 3RF for wheezing J45.20 - Mild intermittent asthma, uncomplicated Refilled albuterol sulfate 2.5 mg (3 mL) inhalation Q6H 15 days PRN 180 mL 0RF shortness of breath or wheezing J45.909 - Unspecified asthma, uncomplicated Discontinued hydroxyzine HCl Discontinued Reason: Doctor's Order 10 mg PO BEDTIME 15 days 15 tabs 0RF F41.9 - Anxiety disorder, unspecified, F51.01 - Primary insomnia rcexbsph-ahsqyzjqm-PB 3.5-10,000-1 mg/mL-unit/mL-% Discontinued Reason: Doctor's Order 4 drps otic (ear) left Q8H 7 days 10 mL 0RF H61.22 - Impacted cerumen, left ear
== END 2024-05-27 10:20 | disposition home or self-care (01) ==
PROVIDERS: PCP Physician Assistant; Visit Provider Physician Assistant
DX: Z00.00 Encounter for general adult medical examination without abnormal findings (principal); F33.1 Major depressive disorder, recurrent, moderate; J45.20 Mild intermittent asthma, uncomplicated; Z13.1 Encounter for screening for diabetes mellitus; F41.1 Generalized anxiety disorder; Z80.0 Family history of malignant neoplasm of digestive organs; F17.200 Nicotine dependence, unspecified, uncomplicated

== ENCOUNTER → 2024-05-27 09:06 | Outpatient (BNVA) | payer OTHER, SELFPAY | PROVIDERS: PCP Physician Assistant; Visit Provider Physician Assistant | DX: Z00.00 Encounter for general adult medical examination without abnormal findings (principal); J45.20 Mild intermittent asthma, uncomplicated; F41.1 Generalized anxiety disorder; F33.1 Major depressive disorder, recurrent, moderate; F17.200 Nicotine dependence, unspecified, uncomplicated; Z80.0 Family history of malignant neoplasm of digestive organs; Z71.6 Tobacco abuse counseling | CPT/HCPCS: 90471; 96127; 96160; 99396 ==

== ENCOUNTER 2024-11-13 10:06 | Outpatient (REF) | payer OTHER, SELFPAY ==
[2024-11-13 10:54] LABS: Hematocrit 41.8 % (37.0-47.0); Hemoglobin 13.4 g/dl (12.0-16.0); Mean Corpuscular HGB Conc 32.1 g/dl (31.0-35.0); Mean Corpuscular Hemoglobin 25.8 pg (27.0-33.0); Mean Corpuscular Volume 80.5 fL (80.0-98.0); Mean Platelet Volume 9.8 fL (9.4-12.3); Platelet Count 298 X10*3/uL (160-400); Red Blood Count 5.19 X10*6/uL (4.20-5.50); Red Cell Distribution Width 13.5 % (11.0-16.0); White Blood Count 7.4 X10*3/uL (4.8-10.8)
--- OUTSIDE RECORDS SUMMARY | 2024-11-13 10:56 | XMS_ITS | Clinical Summary ---
Author Organization [employer] Address [address] [facility] [address] [place] [address] Care Team Providers Care Chronometer Tester Name Role Phone Unavailable Primary Care Provider Unavailabl e Social History Tobacco Use Types Packs/Day Years Used Date Smoking Tobacco: Never Assessed Comments Unknown Sex and Gender Information Value Date Recorded Sex Assigned at Female 02/01/2023 4:25 PM EDT Legal Sex Female 4:25 PM EDT Gender Identity Female 02/01/2023 4:25 PM EDT Sexual Orientation Don't know 02/01/2023 4: 25 PM EDT Plan of Treatment Health Maintenance Due Date Last Done Comments CT Colonography 1963 Colonoscopy 1963 Colorectal Cancer Screening 1963 Depression Screening 1963 FIT DNA/Cologuard 1963 FIT 1963 FOBT 1963 HIV Screening 1963 SDOH Screening 1963 Sigmoidoscopy 1963 Alcohol/Substance Use Screening 1975 Tobacco Screening 1975 Hepatitis C Screening 11/26/1981 Pap Smear 11/26/1984 Cervical Cancer Screening 11/26/1993 HPV/Cotest 11/26/1993 Mammogram 2003 Pneumococcal Vaccine: 50+ Ye ars (1 of 1 - PCV) 11/26/2013 Zoster Vaccines (1 of 2) 11/26/2013 COVID-19 Vaccine ( - 2023-2 5 season) 2024 Influenza Vaccine (#1) 2024 DTaP/Tdap/Td Vaccines (2 - T d or Tdap) 09/20/2025 09/20/2015 RSV Patients and Pa tients Aged 60 years or older (1 - 1-dose 75+ series) 11/26/2038 HIB Vaccines Aged Out No longer eligi ble based on patient's age to complete this topic HPV Vaccines Aged Out No longer eligi ble based on patient's age to complete this topic Hepatitis A Vaccines Aged Out No long er eligible based on patient's age to complete this topic Hepatitis B Vaccines Aged Out No long er eligible based on patient's age to complete this topic IPV Vaccines Aged Out No longer eligi ble based on patient's age to complete this topic Meningococcal Vaccine Aged Out No [place] kyra eligible based on patient's age to complete this topic RSV under 20 months Aged Out No longe r eligible based on patient's age to complete this topic Rotavirus Vaccines Aged Out No longer eligible based on patient's age to complete this topic Insurance [facility] [place] [address]
[2024-11-13 11:42] LABS: Alanine Aminotransferase 155 U/L (0-31); Albumin Level 4.3 g/dL (3.5-5.0); Alkaline Phosphatase 67 U/L (39-117); Anion Gap 12 (12-20); Aspartate Amino Transferase 79 U/L (5-31); Bilirubin Total 0.9 mg/dL (0.0-1.0); Blood Urea Nitrogen 12 mg/dL (9-16); Calcium 9.4 mg/dL (8.4-10.2); Carbon Dioxide 25 mmol/L (22-29); Chloride 108 mmol/L (96-108); Estimated Glomerular Filt Rate > 60; Glucose Fasting 115 mg/dL (60-99); Potassium 3.9 mmol/L (3.3-5.1); Sodium 141 mmol/L (135-145); Total Protein 7.4 g/dL (6.5-8.0)
[2024-11-13 11:59] LABS: Vitamin D 25-OH Total 14.4 ng/mL (>30)
== END 2024-11-13 10:07 | disposition home or self-care (01) ==
LOC: HO.LAB 10:06
PROVIDERS: PCP Physician Assistant; Visit Provider Physician Assistant
DX: Z13.1 Encounter for screening for diabetes mellitus (principal); E55.9 Vitamin D deficiency, unspecified
CPT/HCPCS: 36415; 80053; 82306; 85027

== ENCOUNTER 2024-11-20 11:34 | Outpatient (REF) | payer OTHER, SELFPAY ==
--- OUTSIDE RECORDS SUMMARY | 2024-11-20 14:07 | XMS_ITS | Clinical Summary ---
Author Organization [employer] Address [address] [facility] [address] [place] [address] Care Team Providers Care Pin Sorter And Bagger Name Role Phone Unavailable Primary Care Provider [...] patient's age to complete this topic Insurance [facility]
== END 2024-11-20 11:35 | disposition home or self-care (01) ==
LOC: HO.MAMMO 11:34
PROVIDERS: PCP Physician Assistant; Visit Provider Physician Assistant
DX: Z12.31 Encounter for screening mammogram for malignant neoplasm of breast (principal)
CPT/HCPCS: 77063; 77067

== ENCOUNTER → 2024-11-20 12:00 | Outpatient (BNV) | payer OTHER, SELFPAY | PROVIDERS: PCP Physician Assistant; Visit Provider Internal Medicine | DX: Z12.31 Encounter for screening mammogram for malignant neoplasm of breast (principal) | CPT/HCPCS: 77063; 77067 ==

== ENCOUNTER 2024-12-30 09:40 | Outpatient (REF) | payer OTHER, SELFPAY ==
--- NOTE | ~2024-12-30 | US_ITS ---
CLINICAL HISTORY: R74.8 - Abnormal levels of other serum enzymes --- Additional Notes or Special Inst ructions: Elevated liver enzymes, rule out fatty liver disease US abdomen complete Comparison: None Findings: The visualized pancreas is normal. The aorta and inferior vena cava are normal caliber. There is increased echogenicity within the liver. There are no focal liver mass lesions. There are benign hepatic cysts largest with maximum diameter 1.2 cm. There is no intrahepatic bile duct dilatation. The common duct is 3 mm in diameter. The gallbladder is normal. There is no sonographic Silver sign. The main portal vein is antegrade. The right kidney is 9.3 cm in length. There is mild increased echogenicity within the renal pyramids. No hydronephrosis or solid renal lesions. The left kidney is 9.4 cm in length. There is 9 mm left renal cyst. No hydronephrosis or solid renal lesions. The spleen is normal. No ascites. IMPRESSION: Fatty infiltration of the liver Benign hepatic cysts 9 mm left renal cyst Mild increased echogenicity right renal pyramids which may be artifactual, technical versus can not exclude medullary nephrocalcinosis. This document has been electronically signed by: Lance Florez MD on 12/31/2024 08:42:00
--- OUTSIDE RECORDS SUMMARY | 2024-12-30 10:39 | XMS_ITS | Clinical Summary ---
Author Organization [employer] Address [address] [facility] [address] [place] [address] Care Team Providers Care Hide And Skin Colerer Name Role Phone Unavailable Primary Care Provider [...] Screening 1963 SDOH Screening 1963 Sigmoidoscopy 1963 Disability Screening 1963 Alcohol/Substance Use Screening 1975 Tobacco Screening [...] patient's age to complete this topic Meningococcal B Vaccine Aged Out No l onger eligible based on patient's age to complete this topic Meningococcal Vaccine Aged Out No [place] kyra eligible based on patient's age to complete this topic RSV under 20 months Aged Out No longe r eligible based on patient's age to complete this topic Rotavirus Vaccines Aged Out No longer eligible based on patient's age to complete this topic Insurance [facility]
== END 2024-12-30 09:41 | disposition home or self-care (01) ==
LOC: HO.US 09:40
PROVIDERS: PCP Physician Assistant; Visit Provider Physician Assistant
DX: R74.8 Abnormal levels of other serum enzymes (principal)
CPT/HCPCS: 76700

== ENCOUNTER → 2024-12-30 09:41 | Outpatient (BNV) | payer OTHER, SELFPAY | PROVIDERS: PCP Physician Assistant; Visit Provider Radiology Diagnostic Radiology | DX: N28.1 Cyst of kidney, acquired (principal); D13.4 Benign neoplasm of liver; K76.0 Fatty (change of) liver, not elsewhere classified | CPT/HCPCS: 76700 ==

== ENCOUNTER 2025-03-10 13:59 | Outpatient (AMB) | payer OTHER, SELFPAY ==
--- NOTE | 2025-03-10 14:07 | A.OFFPC_ITS ---
Vital Signs 03/10/25 14:09 Height 5 ft 4 in Weight 138 lb BMI 23.7 BP 120/68 Blood Pressure Location Lt brachial Position Sitting Pulse 80 Pulse Source Pulse Oximeter Temp 97.3 F Temp Source Temporal Artery Scan Pulse Oximetry (%) 98 Oxygen Delivery Method Room Air Intake Visit Reasons: fatty liver disease Intake Note: Patient is here to follow up on Fatty liver disease. Requesting for podiatry due to fungi in toe nail. Dining Room Server Required: No Armed Guard: Not Required per policy Accompanied by: Self / Same As Patient Allergies No Known Allergies (No Known Allergies*) Allergy (Verified 03/10/25 14:28) Medication List - Last Reconciled 03/10/25 by Sesar Prado PA-C albuterol sulfate 90 mcg/actuation (Ventolin HFA) 2 puffs PO Q4H PRN 30 days albuterol sulfate 2.5 mg (3 mL) inhalation Q6H PRN 15 days cholecalciferol (vitamin D3) 50 mcg PO DAILY 90 days ergocalciferol (vitamin D2) (Vitamin D2) 1,250 mcg PO QWEEK hydroxyzine HCl 25 mg PO BEDTIME PRN 30 days vitamin E (dl, acetate) 400 units PO DAILY Tobacco use date assessed: 03/10/25 Dental Screening Dental Screen Date: 03/10/25 Did you have a dental visit in the last 12 months?: No Did you have a dental problem in the last 6 months where you did not have access to dental care?: No Was dental information given to patient?: Patient has dentist HPI fatty liver disease HPI Details Patient is a 58-year-old female here today for a annual physical. Patient has a past medical history significant for depression, GERD, migraines, asthma. .. Fatty liver disease-- > She was diagnosed with this condition and is unsure about the necessary lifestyle changes required to manage it. The patient reports pruritus that has been persistent for two to three months, initially attributed to weather changes. The itching is severe and affects her daily life, requiring her to sit in cool water for relief. She has tried various interventions, including changing deterg ents and lotions, without significant improvement. .. Anxiety: Patient reports she has been dealing with more anxiety as of late. Dean 7 score positive moderate anxiety. She reports having difficulty with sleeping due to racing thoughts. She does have some personal issues going on at home. She is willing to restart hydroxyzine before bed to help sleep. She is not interested in mental health therapy at this time. .. Asthma: REports her asthma has been stable. Report her ALAN inhaler works well. Unfortunately she reports smoking cigarettes again. .. [facility] Medical History Asthma Surgical History H/O tubal ligation Family History Sister Colon cancer, Onset Age: 40 Social History Housing: Apartment Alcohol intake: current Alcohol intake frequency: holidays/special occasions only Alcohol type: beer Patient Tobacco Use Status: Former Tobacco user (2023) Tobacco use type: Cigarette e-Cigarette/Vaping Use: Never Used Second Hand Smoke Exposure: Yes service: No Current occupational status: unemployed Cognitive needs: No Hearing needs: No Vision needs: Yes (Glasses) Female Reproductive History Menstrual Age of Menarche: 11 Questionnaire PHQ-9 Over the last 2 weeks, how often have you been bothered by any of the following problems? 1. Little interest or pleasure in doing things: several days 2. Feeling down, depressed, or hopeless: not at all 3. Trouble falling or staying asleep, or sleeping too much: not at all 4. Feeling tired or having little energy: several days 5. Poor appetite or overeating: nearly every day 6. Feeling bad about yourself - or that you are a failure or have let yourself or your family down: not at all 7. Trouble concentrating on things, such as reading the newspaper or watching television: several days 8. Moving or speaking so slowly that other people could have noticed. Or the opposite - being so fidgety or restless that you have been moving around a lot more than usual: not at all 9. Thoughts that you would be better off or of hurting yourself in some way: not at all Total score: 6 Depression Screening Interpretation: Positive Depression Screening Done: Yes Source: Developed by Michaelle BrushW. Abram, Jun Rios and colleagues, with an educational faizan from [employer]. Thrive Questionnaire Date Thrive assessed: 03/10/25 I am a: Parent/Caregiver What is your living situation today?: I have a steady place to live Within the past 12 months, did the food you bought not last and you didn't have the money to get more?: Often true Within the past 12 months, did you worry whether your food would run out before you got money to buy more?: Sometimes True Do you have trouble paying for medicines?: No Do you have trouble getting transportation to medical appointments?: Yes Do you have trouble paying your heating and electricity bill?: Yes Do you have trouble taking care of your child, family member or friend?: I choose not to answer this question Do you have trouble with day-to-day activities such as bathing, preparing meals, shopping, managing finances, etc.?: No Are you currently unemployed and looking for a job?: I choose not to answer this question Are you interested in more education?: No Please select the resources that you would like help with: Transportation and Utilities Currently or been in a relationship where the following occur: No concerns reported THRIVE Score: 4 AUDIT C Alcohol Use Questionnaire (AUDIT-C) 1. How often do you have a drink containing alcohol?: Monthly or less 2. How many drinks containing alcohol do you have on a typical day when you are drinking?: 1 or 2 3. How often do you have six or more drinks on one occasion?: Less than monthly Total Score: 2 DEAN-7 AMB Questionnaire DEAN-7 Date DEAN - 7 assessed: 03/10/25 Feeling nervous, anxious, or on edge: 1 = Several days Not being able to stop or control worryin = Several days Worrying too much about different things: 1 = Several days Trouble relaxin = Several days Being so restless that it is hard to sit still: 1 = Several days Becoming easily annoyed or irritable: 0 = Not at all Feeling afraid as if something awful might happen: 0 = Not at all Total DEAN-7 score (0-4 normal; 5-9 mild; 10-14 moderate; 15-21 severe): 5 Source: Developed by Drs. Lance L. AdanMichaelle egan, Jun Rios and colleagues, with an educational faizan from [employer]. Review of Systems Const Denies headache(s) Eyes Denies loss of vision ENT Denies vertigo, Denies dizziness, Denies headache(s) and Denies sore throat Card Denies chest pain, Denies leg edema and Denies lightheadedness Resp Denies cough, Denies hemoptysis and Denies wheezing GI Denies abdominal pain, Denies melena, Denies constipation, Denies diarrhea and Denies vomiting Denies urinary frequency, Denies dysuria and Denies urinary urgency Musc Denies arthralgias, Denies joint swelling, Denies numbness and Denies tingling Skin/Breast Details: + generalized pruritus Reports pruritus Neuro Denies Abnormal speech present, Denies behavioral changes, Denies vertigo, Denies dizziness, Denies headache(s), Denies loss of vision, Denies memory loss, Denies numbness and Denies tingling Psych Denies anxiety, Denies behavioral changes, Denies depression, Denies memory loss and Denies panic attacks Favio/Lymph Denies easy bleeding and Denies easy bruising Aller/Immun Denies wheezing Physical exam (Primary Care) Vital Signs: Last Vital Signs Temp 97.3 F 03/10/25 14:09 Pulse 80 03/10/25 14:09 BP 120/68 03/10/25 14:09 Pulse Ox 98 03/10/25 14:09 Oxygen Delivery Method Room Air 03/10/25 14:09 BMI result Body Mass Index 23.7 Tobacco/Smoking Status: Tobacco use Status Tobacco use date assessed 03/10/25 03/10/25 14:16 Patient Tobacco Use Status Former Tobacco user (2023) 03/10/25 14:16 Tobacco use type Cigarette 03/10/25 14:16 e-Cigarette/Vaping Use Never Used 03/10/25 14:16 Are you ready to quit: No Tobacco cessation counseling provided: Yes Items discussed: Nicotine replacement Relapse Prevention: discussed the importance of a supportive environment, discussed negative mood or depression after quitting, weight gain after smoking is common and discussed dietary, exercise and/or lifestyle changes Number of minutes spent counselin CPT code: 89765 - 4-10 Minutes PHQ-9: PHQ-9 Score PHQ-9: Total score 6 03/10/25 14:24 Depression Screening Interpretation: Positive Thrive Assessment: Date of Thrive Assessment Date Thrive assessed 03/10/25 03/10/25 14:16 Currently or been in a relationship where the following occur: No concerns reported Const General: healthy appearing, no acute distress, alert and awake Nutritional Appearance: well nourished Orientation/consciousness: oriented to person, oriented to place and oriented to time HENMT Ears: TM's normal bilaterally General nose exam: Normal nasal mucous membranes and turbinates present Eyes Conjunctivae: conjunctivae normal Sclerae: sclerae normal Pupils: Equal, round and reactive pupils present Neck Neck: Yes no lymphadenopathy and Yes no JVD Thyroid: Thyroid normal Carotids: no bruits Resp Effort & Inspection: normal respiratory effort and not tachypneic Auscultation: no crackles, no rales, no rhonchi and no wheezes Cardio Rate: regular rate Rhythm: regular rhythm Heart sounds: no murmurs and normal S1 and S2 GI Palpation (GI): Soft to palpation, nontender, no hepatomegaly and no splenomegaly Auscultation: normal bowel sounds Skin General skin exam: no rashes or lesions noted and dry skin Neuro General: oriented to person, oriented to place and oriented to time Cranial nerves: Yes Equal, round and reactive pupils present Speech: No Abnormal speech present Gait exam (Neuro): Normal gait present Motor exam (neuro): no tremor noted Extrem Right upper extremity: full ROM Left upper extremity: full ROM Right lower extremity: full ROM; no edema Left lower extremity: full ROM; no edema Psych Mental Status: mental status grossly normal Speech and movement: Normal speech and movement present Affect: normal affect Attitude: cooperative Thought process: Normal thought process present Coding Level of Care Code Est Pt Level 4 (16295) Diagnoses Fatty liver disease, nonalcoholic K76.0 Mild intermittent asthma without complication J45.20 Asthma complication type: uncomplicated Asthma persistence: intermittent Asthma severity: mild DEAN (generalized anxiety disorder) F41.1 Tobacco use disorder F17.200 Generalized pruritus L29.9 Urinary frequency R35.0 Tinea pedis of both feet B35.3 Laterality: bilateral Additional Codes Vital Signs *Quality* - CPT code: 54875 - 4-10 Minutes ([id number]) Assessment & Plan Assessment & Plan (1) Fatty liver disease, nonalcoholic: Code(s): K76.0 - Fatty (change of) liver, not elsewhere classified Category: Medical Plan: The patient will be referred to a lower school music teacher for further evaluation and management of her nonalcoholic fatty liver disease. Dietary modifications are recommended, focusing on a low-fat diet and avoidance of greasy foods. (2) Asthma: Code(s): J45.909 - Unspecified asthma, uncomplicated Category: Medical Qualifiers: Asthma complication type: uncomplicated Asthma persistence: intermittent Asthma severity: mild Qualified Code(s): J45.20 - Mild intermittent asthma, uncomplicated Plan: Patient does report some worsening her asthma lately since starting to smoke again. She also attributes her asthma symptoms somewhat to her anxiety as well. She does not need a refill on her albuterol inhaler and albuterol solution for nebulizer. (3) DEAN (generalized anxiety disorder): Code(s): F41.1 - Generalized anxiety disorder Category: Medical Plan: Patient's DEAN-7 score positive for anxiety which has been existing condition for her. She reports her anxiety has gotten worse over the last few months since having some personal issues at home and moving into a new apartment. (4) Tobacco use disorder: Code(s): F17.200 - Nicotine dependence, unspecified, uncomplicated Category: Medical Plan: Patient does admit to smoking cigarettes as of late due to stress in her anxiety. She has not been buying any packs of cigarettes though does smoke when she has a few drinks. She does understand she needs to completely quit again. (5) Generalized pruritus: Code(s): L29.9 - Pruritus, unspecified Category: Medical Plan: Allergy testing will be conducted to identify potential environmental triggers for the pruritus. Cetirizine has been prescribed to help manage the itching symptoms. (6) Urinary frequency: Code(s): R35.0 - Frequency of micturition Category: Medical Plan: Will send for urinalysis to evaluate for any infection (7) Tinea pedis: Code(s): B35.3 - Tinea pedis Category: Medical Qualifiers: Laterality: bilateral Qualified Code(s): B35.3 - Tinea pedis Plan: Will supply patient with topical cream to use for what seems to be tinea pedis. Will refer to podiatry for further evaluation Orders: Orders Liver Panel 03/10/25 K76.0 - Fatty (change of) liver, not elsewhere classified Complete Blood Count no Diff 03/10/25 K76.0 - Fatty (change of) liver, not elsewhere classified Resp Allergy Profile Region I 03/10/25 L29.9 - Pruritus, unspecified, R05.9 - Cough, unspecified Hepatitis B,C Profile 03/10/25 R74.8 - Abnormal levels of other serum enzymes, Z11.3 - Encounter for screening for infections with a predominantly sexual mode of transmission Ferritin 03/10/25 K76.0 - Fatty (change of) liver, not elsewhere classified IgE Antibody (Anti-IgE IgG) 03/10/25 L29.9 - Pruritus, unspecified UA CC w/rflx Micro + Cult 03/10/25 R30.0 - Dysuria, R35.0 - Frequency of micturition Referrals Podiatry Referral B35.3 - Tinea pedis Gastroenterology Referral K76.0 - Fatty (change of) liver, not elsewhere classified Medications: New cetirizine 10 mg PO DAILY 30 tabs 3RF allergy symptoms 30 days L29.9 - Pruritus, unspecified ciclopirox 0.77% 1 appl topical BID 30 grams 1RF 4 weeks B35.3 - Tinea pedis
[2025-03-10 14:09] VITALS: BP 120/68; PULSE 80; TEMP 36.3; O2SAT 98; BMI 23.7
--- OUTSIDE RECORDS SUMMARY | 2025-03-10 14:43 | XMS_ITS | Clinical Summary ---
Author Organization [employer] Address [address] [place] [address] Care Team Providers Care Hvac Refrigeration Technician Name Role Phone Unavailable Primary Care Provider [...] 2023-2 5 season) 2024 Influenza Vaccine (#1) 2025 DTaP/Tdap/Td Vaccines (2 - T d or [...] patient's age to complete this topic Insurance [facility]
== END 2025-03-10 15:02 | disposition home or self-care (01) ==
LOC: HO.HMCH 14:00
PROVIDERS: PCP Physician Assistant; Visit Provider Physician Assistant
DX: K76.0 Fatty (change of) liver, not elsewhere classified (principal); J45.20 Mild intermittent asthma, uncomplicated; F41.1 Generalized anxiety disorder; F17.200 Nicotine dependence, unspecified, uncomplicated; L29.9 Pruritus, unspecified; R35.0 Frequency of micturition; B35.3 Tinea pedis

== ENCOUNTER 2025-03-10 13:59 | Outpatient (REF) | payer OTHER, SELFPAY ==
[2025-03-10 16:26] LABS: Appearance Urine Clear; Glucose Urine UA Negative (Negative); PH 5.0 (5.0-9.0); Specific Gravity - Urine 1.020 (1.005-1.025); UMIC TRIGGER UACC YES
[2025-03-10 16:26] LABS: Hematocrit 40.3 % (37.0-47.0); Hemoglobin 13.1 g/dl (12.0-16.0); Mean Corpuscular HGB Conc 32.5 g/dl (31.0-35.0); Mean Corpuscular Hemoglobin 26.2 pg (27.0-33.0); Mean Corpuscular Volume 80.6 fL (80.0-98.0); NRBC Abs Auto 0.000 X10*3/uL (0.0-0.012); NRBC Pct Auto 0.0 /100WBC (0.0-0.2); Platelet Count 279 X10*3/uL (160-400); Red Blood Count 5.00 X10*6/uL (4.20-5.50); White Blood Count 8.5 X10*3/uL (4.8-10.8)
[2025-03-10 16:33] LABS: UACC Culture Trigger YES
[2025-03-10 16:54] LABS: Alanine Aminotransferase 83 U/L (0-31); Albumin Level 4.4 g/dL (3.5-5.0); Alkaline Phosphatase 74 U/L (39-117); Aspartate Amino Transferase 43 U/L (5-31); Total Protein 7.3 g/dL (6.5-8.0)
[2025-03-10 17:08] LABS: Ferritin 209 ng/mL (10-250)
[2025-03-11 03:43] LABS: HBS Num1 > 1000.00 mIU/mL (0-7.99); HBc Num1 4.40 S/CO (0.00-0.79); HBsAGNum1 0.44 S/CO (0.00-0.99); Hepatitis B Surface Antigen Negative (Negative); ~HepC Num1 0.23 S/CO (0.00-0.79); ~Hepatitis B Surface Antibody REACTIVE (Nonreactive); ~Hepatitis C Antibody Nonreactive (Nonreactive)
[2025-03-11 04:43] LABS: HBc Num2 4.42 S/CO; HBc Num3 4.54 S/CO
[2025-03-18 02:34] LABS: IgE Antibody (Anti-IgE IgG) 59 ng/mL (<168)
[2025-03-18 04:54] LABS: Class Alternaria alternata 0; Class Aspergillus fumigatus 0; Class Bermuda Grass 0; Class Birch 0; Class Cat Dander 0; Class Cladosporium herbarum 0; Class Cockroach 0; Class Common Ragweed 0; Class Cottonwood 0; Class Derm. pterony 0; Class Dermatophagoides farinae 0; Class Dog Dander 0; Class Elm 0; Class Maple Box Elder 0; Class Mountain Cedar 0; Class Mouse Urine Protein 0; Class Mugwort 0; Class Oak 0; Class Penicillium crysogenum 0; Class Rough Pigweed 0; Class Sheep Sorrel 0; Class Sycamore 0; Class Timothy Grass 0; Class Walnut Tree 0; Class White Ash 0; Class White Mulberry 0; D002 - IgE D farinae <0.10 kU/L; E001 - IgE Cat Dander <0.10 kU/L; E005 - IgE Dog Dander <0.10 kU/L; G006 - IgE Timothy Grass <0.10 kU/L; I006-IgE Cockroach, German <0.10 kU/L; M002 - IgE Cladosporium herbar <0.10 kU/L; M003 - IgE Aspergillus fumigat <0.10 kU/L; M006 - IgE Alternaria alternat <0.10 kU/L; T001 IgE Maple/Box Elder <0.10 kU/L; T006 - IgE Cedar, Mountain <0.10 kU/L; T007 - IgE Oak, White <0.10 kU/L; T008 IgE Elm, American <0.10 kU/L; T010 - IgE Walnut <0.10 kU/L; T011 - IgE Maple Leaf Sycamore <0.10 kU/L; T014 - IgE Cottonwood <0.10 kU/L; T015 - IgE Ash, White <0.10 kU/L; T070 - IgE White Mulberry <0.10 kU/L; W001 - IgE Ragweed, Short <0.10 kU/L; W006 - IgE Mugwort <0.10 kU/L; W014 IgE Pigweed, Common <0.10 kU/L; W018 IgE Sheep Sorrel <0.10 kU/L
== END 2025-03-10 14:00 | disposition home or self-care (01) ==
LOC: HO.LAB 13:59
PROVIDERS: PCP Physician Assistant; Visit Provider Physician Assistant
DX: K76.0 Fatty (change of) liver, not elsewhere classified (principal); J45.20 Mild intermittent asthma, uncomplicated; F41.1 Generalized anxiety disorder; L29.9 Pruritus, unspecified; R35.0 Frequency of micturition; B35.3 Tinea pedis; R30.0 Dysuria; R05.9 Cough, unspecified; R74.8 Abnormal levels of other serum enzymes; F17.210 Nicotine dependence, cigarettes, uncomplicated; Z11.3 Encounter for screening for infections with a predominantly sexual mode of transmission
CPT/HCPCS: 36415; 80076; 81001; 82728; 82785; 83520; 85027; 86003; 86704; 86706; 86803; 87086; 87340; 96127; 99212

== ENCOUNTER 2025-05-14 11:40 | Outpatient (AMB) | payer OTHER, SELFPAY ==
[2025-05-14 12:22] VITALS: BMI 23.7
--- NOTE | 2025-05-14 12:22 | MHC.OFFVIS ---
Vital Signs 05/14/25 12:22 Height 5 ft 4 in Weight 138 lb BMI 23.7 Intake Visit Reasons: B/L tinea pedis Intake Note: Mitzy is a 59 year old female who presents today as a new patient for an evaluation of bilateral Tinea pedis. She was seen by her PCP on 03/10/25 where topical cream ciclopirox was prescribed, she states this medication has helped her. Patient reports she has also tried athlete foot powder years ago and it did not work to well. She states this has been going on all her life. Allergies No Known Allergies (No Known Allergies*) Allergy (Verified 05/14/25 12:23) HPI Comments Details: The patient is a 59-year-old female with a PMH presenting with thickened, discolored, and dystrophic toenails x10. The patient reports a long-standing history of toenail fungus, which has been present for most of her life, causing thickening and discoloration of the toenails. She has attempted various treatments, including herbal remedies and topical medications, but has not achieved satisfactory results. The patient has not experienced systemic symptoms from the onychomycosis, but the thickened nails cause discomfort and difficulty in trimming. She has used topical tolnaftate, which has shown some improvement in nail appearance, but the thickness remains unchanged. Oral antifungal treatment was not pursued due to concerns about liver function, as the patient has been recently diagnosed with fatty liver disease. The patient also reports intermittent foot pain to the ball of the foot bilaterally. She experiences occasional discomfort, particularly when stepping down. She denies any recent pedal injuries. She denies any other pedal concerns. She denies any current nausea, vomiting, fever, or chills. REPLACED BY [facility] Medical History (Updated 05/14/25 @ 13:05 by Faye Nguyen DPM) Pes planus of both feet Metatarsalgia of both feet Pain in both feet Nail dystrophy Tinea unguium Asthma Surgical History H/O tubal ligation Family History Sister Colon cancer, Onset Age: 40 Social History Housing: Apartment Alcohol intake: current Alcohol intake frequency: holidays/special occasions only Alcohol type: beer Patient Tobacco Use Status: Former Tobacco user (2023) Tobacco use type: Cigarette e-Cigarette/Vaping Use: Never Used Second Hand Smoke Exposure: Yes service: No Current occupational status: unemployed Cognitive needs: No Hearing needs: No Vision needs: Yes (Glasses) Female Reproductive History Menstrual Age of Menarche: 11 Review of Systems Const Details: - Integumentary: Reports thickened, discolored toenails x10. Denies systemic symptoms related to onychomycosis. - Musculoskeletal: Reports intermittent foot pain and tenderness, particularly when stepping down. Denies persistent pain or swelling. - Gastrointestinal: Reports recent diagnosis of fatty liver disease. Denies abdominal pain or jaundice. All systems reviewed & are unremarkable except as noted in HPI and below Physical Exam Vital Signs: BMI result Body Mass Index 23.7 Extrem Other: Bilateral lower extremity focused physical exam: Derm: Thickened, discolored, dystrophic, and elongated toenails X 10 noted with subungual debris. No open lesions abrasions or wounds noted. No hyperkeratotic lesions noted. No clinical signs of infection. No ecchymosis or discoloration noted. Skin supple and turgor within normal limits. Vascular: DP/PT pulses palpable. Capillary refill time less than 3 seconds. Temperature gradient warm to warm. Pedal hair absent. No varicosities noted. Neuro: Protective sensations grossly intact. MSK: Mild pain on palpation to the forefoot due to thickened toenails. Mild pain on palpation to the plantar aspect of the feet in the area of the metatarsal heads bilaterally. Range of motion of the forefoot hindfoot and ankles within normal limits. No crepitus noted. Mildly antalgic gait unassisted. Office Procedures AMB Debridement/Avulsion Podia Details: Debrided toenails X 10 using sterile nail nippers with no incidents. 18652-Knqykspujyh of Nail 6+ Procedure code (CPT) selection complete Results Reviewed Results Reviewed: Laboratory Tests 03/10/25 15:37 AST 43 H ALT 83 H Assessment & Plan Assessment & Plan (1) Tinea unguium: Code(s): B35.1 - Tinea unguium Category: Medical (2) Nail dystrophy: Code(s): L60.3 - Nail dystrophy Category: Medical (3) Pain in both feet: Code(s): M79.671 - Pain in right foot; M79.672 - Pain in left foot Category: Medical (4) Metatarsalgia of both feet: Code(s): M77.41 - Metatarsalgia, right foot; M77.42 - Metatarsalgia, left foot Category: Medical (5) Pes planus of both feet: Code(s): M21.41 - Flat foot [pes planus] (acquired), right foot; M21.42 - Flat foot [pes planus] (acquired), left foot Category: Medical Plan Patient was informed and verbally consented to the use of an ambient scribe for clinic note documentation during this visit. I discussed with the patient the management of onychomycosis, emphasizing the importance of consistent use of antifungal topical treatment. Discussed with patient due to increased liver function levels, do not recommend antifungal oral medication at this time. We reviewed the use of metatarsal pads to support the foot arch and reduce pain . I advised a follow-up in nine weeks to evaluate the effectiveness of the current treatment plan and make necessary adjustments. - Continue topical treatment with tolnaftate for onychomycosis, ensuring proper application technique to enhance penetration. - Continue to monitor liver function tests before considering oral antifungal therapy due to existing fatty liver disease. - Provided patient with metatarsal pads to alleviate foot pain associated with metatarsalgia. - Advised patient to wear supportive shoe gear and to avoid barefoot walking. - Advised patient to ensure disinfect sting and cleansing the shoes to prevent spread or worsening of fungus. Patient is to follow-up in 9 weeks for re-evaluation and routine fungal nail care. If pain in feet worsened, we will consider full length inserts, x-rays, physical therapy, and/or injection. Orders: Orders AMB Debridement/Avulsion Podiatry Today B35.1 - Tinea unguium, L60.3 - Nail dystrophy, M77.41 - Metatarsalgia, right foot, M77.42 - Metatarsalgia, left foot, M79.671 - Pain in right foot, M79.672 - Pain in left foot Coding Level of Care Code New Pt Level 4 (48584) Diagnoses Tinea unguium B35.1 Nail dystrophy L60.3 Pain in both feet M79.671; M79.672 Metatarsalgia of both feet M77.41; M77.42 Pes planus of both feet M21.41; M21.42 CPT Codes Skin Debridement - CPT: 62427-Vwpraawkoir of Nail 6+ ([id number]) Time Spent (min) 55
--- OUTSIDE RECORDS SUMMARY | 2025-05-14 13:30 | XMS_ITS | Clinical Summary ---
Author Organization [employer] Address [address] [place] [address] Care Team Providers Care Curing Bin Operator Name Role Phone Unavailable Primary Care Provider [...] Vaccines (1 of 2) 11/26/2013 COVID-19 Vaccine (1 - 2023-2 5 season) 2025 Influenza Vaccine (#1) 2025 DTaP/Tdap/Td Vaccines (2 [...] patient's age to complete this topic Insurance [employer] (O)
== END 2025-05-14 12:51 | disposition home or self-care (01) ==
LOC: HO.HPODS 11:41
PROVIDERS: PCP Physician Assistant; Visit Provider Student in an Organized Health Care Education/Training Program
DX: M79.671 Pain in right foot (principal); B35.1 Tinea unguium; L60.3 Nail dystrophy; M79.672 Pain in left foot; M77.41 Metatarsalgia, right foot; M77.42 Metatarsalgia, left foot; M21.41 Flat foot [pes planus] (acquired), right foot; M21.42 Flat foot [pes planus] (acquired), left foot
CPT/HCPCS: 11721; 99203

== ENCOUNTER → 2025-05-14 11:40 | Outpatient (BNVA) | payer OTHER, SELFPAY | PROVIDERS: PCP Physician Assistant; Visit Provider Student in an Organized Health Care Education/Training Program | DX: B35.1 Tinea unguium (principal); L60.3 Nail dystrophy; M79.671 Pain in right foot; M79.672 Pain in left foot; M77.41 Metatarsalgia, right foot; M77.42 Metatarsalgia, left foot; M21.41 Flat foot [pes planus] (acquired), right foot; M21.42 Flat foot [pes planus] (acquired), left foot | CPT/HCPCS: 11721; 99202 ==

== ENCOUNTER 2025-05-28 09:44 | Outpatient (AMB) | payer OTHER, SELFPAY ==
[2025-05-28 09:49] VITALS: BP 118/72; PULSE 70; TEMP 36.2; O2SAT 96; BMI 24.0
--- NOTE | 2025-05-28 09:49 | A.OFFPC_ITS ---
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 Accompanied by: Self / Same As Patient Allergies No Known Allergies (No Known Allergies*) Allergy (Verified 05/28/25 11:02) Medication List - Last Reconciled 05/28/25 by Sesar Prado PA-C albuterol sulfate 90 mcg/actuation (Ventolin HFA) 2 puffs PO Q4H PRN 30 days albuterol sulfate 2.5 mg (3 mL) inhalation Q6H PRN 15 days cetirizine 10 mg PO DAILY 30 days cholecalciferol (vitamin D3) 50 mcg PO DAILY 90 days ergocalciferol (vitamin D2) (Vitamin D2) 1,250 mcg PO QWEEK hydroxyzine HCl 25 mg PO BEDTIME PRN vitamin E (dl, acetate) 400 units PO DAILY Tobacco use date assessed: 05/28/25 Dental Screening Dental Screen Date: 05/28/25 Did you have a dental visit in the last 12 months?: No Did you have a dental problem in the last 6 months where you did not have access to dental care?: No Was dental information given to patient?: Patient has dentist HPI Annual Exam HPI Details Patient is a 59-year-old female here today for a annual physical. Patient has a past medical history significant for depression, GERD, migraines, asthma. .. Fatty liver disease-- > noted elevated liver enzymes in the spring, repeat labs showing improved liver enzymes. She has been reducing fatty greasy foods in her diet has been started on vitamin E. She was diagnosed with this condition and is unsure about the necessary lifestyle changes required to manage it. Patient's pruritus has been much better with the use of antihistamine. . .. Anxiety: Patient reports she has been dealing with more anxiety as of late. Dean 7 score positive moderate anxiety. She reports having difficulty with sleeping due to racing thoughts. She does have some personal issues going on at home. She reports hydroxyzine is helpful for her sleep. .. Asthma: REports her asthma has been stable. Report her ALAN inhaler works well. Unfortunately she reports smoking cigarettes again. MAmmo: Mammogram done in November of 2024 BI-RADS 1 .. 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 VAccine: declines COVID or FLu, UTD with Tdap, declines shingles vaccine Colon cancer screening: Had a sister whom from colon cancer at age 40. needs colonoscopy-has upcoming appointment with Gastroenterology [facility] Medical History Pes planus of both feet Metatarsalgia of both feet Pain in both feet Nail dystrophy Tinea unguium Asthma Surgical History H/O tubal ligation Family History Sister Colon cancer, Onset Age: 40 Social History Housing: Apartment Alcohol intake: current Alcohol intake frequency: holidays/special occasions only Alcohol type: beer Patient Tobacco Use Status: Former Tobacco user (2023) Tobacco use type: Cigarette e-Cigarette/Vaping Use: Never Used Second Hand Smoke Exposure: Yes service: No Current occupational status: unemployed Cognitive needs: No Hearing needs: No Vision needs: Yes (Glasses) Female Reproductive History Menstrual Age of Menarche: 11 Questionnaire PHQ-9 Over the last 2 weeks, how often have you been bothered by any of the following problems? 1. Little interest or pleasure in doing things: several days 2. Feeling down, depressed, or hopeless: not at all 3. Trouble falling or staying asleep, or sleeping too much: not at all 4. Feeling tired or having little energy: several days 5. Poor appetite or overeating: nearly every day 6. Feeling bad about yourself - or that you are a failure or have let yourself or your family down: not at all 7. Trouble concentrating on things, such as reading the newspaper or watching television: several days 8. Moving or speaking so slowly that other people could have noticed. Or the opposite - being so fidgety or restless that you have been moving around a lot more than usual: not at all 9. Thoughts that you would be better off or of hurting yourself in some way: not at all Total score: 6 Depression Screening Interpretation: Positive Depression Screening Follow-up: Existing condition Depression Screening Done: Yes 94144 - PHQ-9 Billing: Yes Source: Developed by Drs. Lance Arellano, Michaelle Valverde, Jun Rios and colleagues, with an educational faizan from [employer]. Thrive Questionnaire Date Thrive assessed: 03/10/25 I am a: Parent/Caregiver What is your living situation today?: I have a steady place to live Within the past 12 months, did the food you bought not last and you didn't have the money to get more?: Often true Within the past 12 months, did you worry whether your food would run out before you got money to buy more?: Sometimes True Do you have trouble paying for medicines?: No Do you have trouble getting transportation to medical appointments?: Yes Do you have trouble paying your heating and electricity bill?: Yes Do you have trouble taking care of your child, family member or friend?: I choose not to answer this question Do you have trouble with day-to-day activities such as bathing, preparing meals, shopping, managing finances, etc.?: No Are you currently unemployed and looking for a job?: I choose not to answer this question Are you interested in more education?: No Currently or been in a relationship where the following occur: No concerns reported THRIVE Score: 4 AUDIT C Alcohol Use Questionnaire (AUDIT-C) 1. How often do you have a drink containing alcohol?: Monthly or less 2. How many drinks containing alcohol do you have on a typical day when you are drinking?: 1 or 2 3. How often do you have six or more drinks on one occasion?: Never Total Score: 1 DEAN-7 AMB Questionnaire DEAN-7 Date DEAN - 7 assessed: 03/10/25 Feeling nervous, anxious, or on edge: 1 = Several days Not being able to stop or control worryin = Several days Worrying too much about different things: 1 = Several days Trouble relaxin = Several days Being so restless that it is hard to sit still: 1 = Several days Becoming easily annoyed or irritable: 0 = Not at all Feeling afraid as if something awful might happen: 0 = Not at all Total DEAN-7 score (0-4 normal; 5-9 mild; 10-14 moderate; 15-21 severe): 5 Source: Developed by Drs. Lance Arellano, Michaelle Valverde, Jun Rios and colleagues, with an educational faizan from [employer]. DEAN-7 Assessment Billing DEAN-7 Assessment Tool: DEAN-7 Assessment 17882 Review of Systems Const Denies body aches, Denies chills, Denies excessive sweating, Denies fatigue, Denies fever(s) and Denies headache(s) Eyes Denies blurry vision ENT Denies dysphagia, Denies vertigo, Denies dizziness, Denies headache(s), Denies hearing loss and Denies tinnitus Card Denies chest pain, Denies chest pain with activity, Denies syncope, Denies irregular heart rhythm and Denies dyspnea Resp Denies chest congestion, Denies cough, Denies hemoptysis, Denies dyspnea and Denies wheezing GI Denies abdominal pain, Denies melena, Denies hematochezia, Denies coffee ground emesis, Denies dysphagia, Denies diarrhea, Denies nausea and Denies vomiting Denies urinary frequency, Denies dysuria, Denies urinary hesitancy and Denies urinary urgency Musc Denies arthralgias, Denies limited range of motion, Denies muscle cramps and Denies muscle weakness Skin/Breast Denies rash and Denies skin ulcer Neuro Denies Abnormal speech present, Denies confusion, Denies vertigo, Denies dizziness, Denies syncope, Denies headache(s), Denies memory loss and Denies seizure-like activity Psych Denies anxiety, Denies confusion, Denies depression, Denies memory loss, Denies panic attacks and Denies paranoia Endo Denies excessive sweating, Denies fatigue, Denies flushing, Denies polydipsia and Denies polyuria Aller/Immun Denies wheezing Physical exam (Primary Care) Vital Signs: Last Vital Signs Temp 97.1 F 05/28/25 09:49 Pulse 70 05/28/25 09:49 BP 118/72 05/28/25 09:49 Pulse Ox 96 05/28/25 09:49 Oxygen Delivery Method Room Air 05/28/25 09:49 BMI result Body Mass Index 24.0 Tobacco/Smoking Status: Tobacco use Status Tobacco use date assessed 05/28/25 05/28/25 09:54 Patient Tobacco Use Status Former Tobacco user (2023) 05/28/25 09:52 Tobacco use type Cigarette 05/28/25 09:52 e-Cigarette/Vaping Use Never Used 05/28/25 09:52 PHQ-9: PHQ-9 Score PHQ-9: Total score 6 05/28/25 10:36 Depression Screening Interpretation: Positive Depression Screening Follow-up: Existing condition Thrive Assessment: Date of Thrive Assessment Date Thrive assessed 03/10/25 05/28/25 09:52 Currently or been in a relationship where the following occur: No concerns reported Const General: cooperative, comfortable, no acute distress, alert and awake; No confusion Orientation/consciousness: oriented to person, oriented to place, patient oriented x3 and No confusion HENMT Head: Yes normocephalic Ears: external ears normal and TM's normal bilaterally Face and sinus: No sinus tenderness Mouth: Normal oral and palatal mucosa present and tongue normal Teeth and gingiva: dentition normal and gingiva normal Throat: Yes posterior oropharynx normal, Yes tonsils normal and Yes uvula midline Eyes Conjunctivae: conjunctivae normal Sclerae: sclerae normal Pupils: Equal, round and reactive pupils present EOM: EOMs intact bilaterally Direct Ophthalmoscopy: No no photophobia Neck Neck: Yes no lymphadenopathy, No tender and Yes no JVD Thyroid: Thyroid normal Carotids: no bruits Chest Chest palpation & inspection: no tenderness Resp Effort & Inspection: normal respiratory effort, no audible wheezes, not labored and no stridor Auscultation: no crackles, no rales, no rhonchi and no wheezes Cardio Jugular venous distension: no JVD Rate: regular rate, not bradycardic and not tachycardic Rhythm: regular rhythm Bruits: no carotid bruits Peripheral pulses: Peripheral pulses 2+ throughout GI Inspection: Yes normal to inspection, No abdominal wall ecchymosis and No visible herniation Palpation (GI): Soft to palpation, nontender, no guarding, not rigid and No hepatosplenomegaly present Auscultation: normoactive bowel sounds General: Yes no CVA tenderness Back/Spine/Pelvis Back: no CVA tenderness and No back tenderness Cervical Spine: cervical ROM normal Thoracic/Lumbar Spine: thoracic and lumbar spine normal to inspection, straight leg raise negative bilaterally, No thoraco-lumbar ROM limited and No lumbar spinal tenderness Skin Lesions: no lesions Rashes: no rashes Wounds: no wounds Neuro General: oriented to person, oriented to place, patient oriented x3, CN's II-XI intact bilaterally and No confusion Cranial nerves: Yes Equal, round and reactive pupils present and Yes Normal accommodation reflex present Cognition (Neuro): normal cognition Speech: No Abnormal speech present Gait exam (Neuro): Normal gait present Motor exam (neuro): 5/5 motor strength present throughout Extrem Right upper extremity: full ROM; no cyanosis Left upper extremity: full ROM; no cyanosis Right lower extremity: no edema Left lower extremity: no edema Psych Appearance: grossly normal Mental Status: mental status grossly normal Affect: normal affect Attitude: cooperative Thought process: Normal thought process present Coding Level of Care Code Est Pt Prev Care 40-64y(34269) Diagnoses Annual physical exam Z00.00 Fatty liver disease, nonalcoholic K76.0 Mild intermittent asthma without complication J45.20 Asthma severity: mild Asthma persistence: intermittent Asthma complication type: uncomplicated DEAN (generalized anxiety disorder) F41.1 Generalized pruritus L29.9 MDD (major depressive disorder), recurrent episode, moderate F33.1 Additional Codes PHQ-9 - 63502 - PHQ-9 Billing: Yes ([id number]) DEAN-7 Assessment Billing - DEAN-7 Assessment Tool: DEAN-7 Assessment 72082 ([id number]) Assessment & Plan Assessment & Plan (1) Annual physical exam: Code(s): Z00.00 - Encounter for general adult medical examination without abnormal findings Category: Medical Plan: As per HPI (2) Fatty liver disease, nonalcoholic: Code(s): K76.0 - Fatty (change of) liver, not elsewhere classified Category: Medical Plan: The patient will be referred to a cdl truck driver for further evaluation and management of her nonalcoholic fatty liver disease. Dietary modifications are recommended, focusing on a low-fat diet and avoidance of greasy foods. Of note most recent liver enzymes have improved with dietary changes. (3) Asthma: Code(s): J45.909 - Unspecified asthma, uncomplicated Category: Medical Qualifiers: Asthma severity: mild Asthma persistence: intermittent Asthma complication type: uncomplicated Qualified Code(s): J45.20 - Mild intermittent asthma, uncomplicated Plan: Patient does report some worsening her asthma lately since starting to smoke again. She also attributes her asthma symptoms somewhat to her anxiety as well. She does not need a refill on her albuterol inhaler and albuterol solution for nebulizer. (4) DEAN (generalized anxiety disorder): Code(s): F41.1 - Generalized anxiety disorder Category: Medical Plan: Patient's DEAN-7 score positive for anxiety which has been existing condition for her. She reports her anxiety has gotten worse over the last few months since having some personal issues at home and moving into a new apartment. (5) Generalized pruritus: Code(s): L29.9 - Pruritus, unspecified Category: Medical Plan: Allergy testing will be conducted to identify potential environmental triggers for the pruritus. Cetirizine has been prescribed to help manage the itching symptoms. (6) MDD (major depressive disorder), recurrent episode, moderate: Code(s): F33.1 - Major depressive disorder, recurrent, moderate Category: Medical Plan: Patient's PHQ-9 score positive for depression which has been existing condition for her. She is not interested in any mental health therapy or mental health medications at this time. Orders: Orders Vitamin D 25-OH Total Today E55.9 - Vitamin D deficiency, unspecified Complete Blood Count no Diff Today J45.20 - Mild intermittent asthma, uncomplicated Comprehensive Bartelso. Panel Fast Today Z13.1 - Encounter for screening for diabetes mellitus Medications: New hydroxyzine HCl 25 mg PO BEDTIME PRN 14 tabs 0RF insomnia 14 days F51.01 - Primary insomnia magnesium 250 mg PO DAILY 30 tabs 3RF 30 days F51.01 - Primary insomnia
--- OUTSIDE RECORDS SUMMARY | 2025-05-28 11:21 | XMS_ITS | Clinical Summary ---
Author Organization [employer] Address [address] [place] [address] Care Team Providers Care Member Service Representative Name Role Phone Unavailable Primary Care Provider [...] patient's age to complete this topic Insurance [facility] (O)
== END 2025-05-28 11:38 | disposition home or self-care (01) ==
LOC: HO.HMCH 09:45
PROVIDERS: PCP Physician Assistant; Visit Provider Physician Assistant
DX: Z00.00 Encounter for general adult medical examination without abnormal findings (principal); K76.0 Fatty (change of) liver, not elsewhere classified; J45.20 Mild intermittent asthma, uncomplicated; F41.1 Generalized anxiety disorder; L29.9 Pruritus, unspecified; F33.1 Major depressive disorder, recurrent, moderate

== ENCOUNTER → 2025-05-28 09:44 | Outpatient (BNVA) | payer OTHER, SELFPAY | PROVIDERS: PCP Physician Assistant; Visit Provider Physician Assistant | DX: Z00.00 Encounter for general adult medical examination without abnormal findings (principal); J45.20 Mild intermittent asthma, uncomplicated; K21.9 Gastro-esophageal reflux disease without esophagitis; G43.909 Migraine, unspecified, not intractable, without status migrainosus; K76.0 Fatty (change of) liver, not elsewhere classified; F41.9 Anxiety disorder, unspecified; F41.1 Generalized anxiety disorder; L29.9 Pruritus, unspecified; F33.1 Major depressive disorder, recurrent, moderate; F51.01 Primary insomnia | CPT/HCPCS: 96127; 99396 ==

== ENCOUNTER 2025-07-21 11:22 | Outpatient (AMB) | payer OTHER, SELFPAY ==
[2025-07-21 11:32] VITALS: BMI 24.0
--- NOTE | 2025-07-21 11:32 | MHC.OFFVIS ---
Vital Signs 07/21/25 11:32 Height 5 ft 4 in Weight 140 lb BMI 24.0 Intake Visit Reasons: fungal nail care Intake Note: Mitzy is a 59 year old female who presents to the office today for a follow up fungal nail care. Pt states the ciclopirox has not really been helping with her fungus however the meta tarsal pads has helped slightly with her bilateral foot pain. She mentions her nails has actually worsened since her last visit. Allergies No Known Allergies (No Known Allergies*) Allergy (Verified 07/21/25 11:33) HPI Comments Details: The patient is a 59 year old female presenting for a follow-up for tinea unguium and metatarsalgia. She reports that her feet have been less painful and she has been using the metatarsal pads with relief. Patient states that she has been using an lggl-waq-apkhgla topical treatment for her nails. She denies any new pedal injuries. She denies any other pedal concerns. [facility] Medical History (Updated 07/25/25 @ 20:12 by Faye Nguyen DPM) Nail disorder Tinea unguium Annual physical exam Tinea unguium Tinea pedis Pain in both feet Well woman exam Breast cancer screening Cervical cancer screening Elevated liver enzymes Otitis externa, left Left ear impacted cerumen Screening for diabetes mellitus (DM) Screening for hypothyroidism Screening for hypercholesterolemia Pes planus of both feet Metatarsalgia of both feet Nail dystrophy Asthma Surgical History H/O tubal ligation Family History Sister Colon cancer, Onset Age: 40 Social History Housing: Apartment Alcohol intake: current Alcohol intake frequency: holidays/special occasions only Alcohol type: beer Patient Tobacco Use Status: Former Tobacco user Tobacco use type: Cigarette e-Cigarette/Vaping Use: Never Used Second Hand Smoke Exposure: Yes service: No Current occupational status: unemployed Cognitive needs: No Hearing needs: No Vision needs: Yes (Glasses) Female Reproductive History Menstrual Age of Menarche: 11 Review of Systems Const Details: - Integumentary: Reports thickened, discolored toenails x10. - Musculoskeletal: Reports intermittent mild foot pain bilaterally, particularly when stepping down. All systems reviewed & are unremarkable except as noted in HPI and below Physical Exam Exam Exam: Physical Exam - Neurologic: Sensation to light touch is intact in the feet. Vital Signs: BMI result Body Mass Index 24.0 Extrem Other: Bilateral lower extremity focused physical exam: Derm: Thickened, discolored, dystrophic, and elongated toenails X 10 noted with subungual debris. No open lesions abrasions or wounds noted. No hyperkeratotic lesions noted. No clinical signs of infection. No ecchymosis or discoloration noted. Skin supple and turgor within normal limits. Vascular: DP/PT pulses palpable. Capillary refill time less than 3 seconds. Temperature gradient warm to warm. Pedal hair absent. No varicosities noted. Neuro: Protective sensations grossly intact. MSK: Mild discomfort to the forefoot due to thickened toenails. Mild pain on palpation to the plantar aspect of the feet in the area of the metatarsal heads bilaterally, reduced from last visit. Range of motion of the forefoot hindfoot and ankles within normal limits. No crepitus noted. Mildly antalgic gait unassisted. Office Procedures AMB Debridement/Avulsion Podia Details: Debrided toenails x10 using sterile nail nippers and Dremel. 09419-Jcyqvibbqxe of Nail 6+ Procedure code (CPT) selection complete Results Reviewed Results Reviewed: Laboratory Tests 03/10/25 15:37 AST 43 H ALT 83 H Assessment & Plan Assessment & Plan (1) Tinea unguium: Code(s): B35.1 - Tinea unguium Category: Medical (2) Nail dystrophy: Code(s): L60.3 - Nail dystrophy Category: Medical (3) Pain in both feet: Code(s): M79.671 - Pain in right foot; M79.672 - Pain in left foot Category: Medical (4) Metatarsalgia of both feet: Code(s): M77.41 - Metatarsalgia, right foot; M77.42 - Metatarsalgia, left foot Category: Medical (5) Pes planus of both feet: Code(s): M21.41 - Flat foot [pes planus] (acquired), right foot; M21.42 - Flat foot [pes planus] (acquired), left foot Category: Medical (6) Tinea unguium: Code(s): B35.1 - Tinea unguium Category: Medical (7) Nail disorder: Code(s): L60.9 - Nail disorder, unspecified Category: Medical Plan Patient was informed and verbally consented to the use of an ambient scribe for clinic note documentation during this visit. I discussed the patient's foot pain, recommending continued use of metatarsal pads and rfkg-wan-hqdnrdb analgesics like ibuprofen or Tylenol for symptom management. I also advised that if the pain worsens, a prescription for the anti-inflammatory medication meloxicam is an option. I performed routine nail trimming and scheduled a follow-up visit in nine weeks for continued care. - Nail debridement was performed. - Provided patient with metatarsal pads. - Advised patient to avoid barefoot walking and to wear supportive shoe gear. - Patient may take Tylenol or ibuprofen as needed for pain. RTC in 9 weeks. Orders: Orders AMB Debridement/Avulsion Podiatry 07/21/25 B35.1 - Tinea unguium, L60.3 - Nail dystrophy, L60.9 - Nail disorder, unspecified, M21.41 - Flat foot [pes planus] (acquired), right foot, M21.42 - Flat foot [pes planus] (acquired), left foot, M77.41 - Metatarsalgia, right foot, M77.42 - Metatarsalgia, left foot Coding Level of Care Code Est Pt Level 4 (28716) Diagnoses Tinea unguium B35.1 Nail dystrophy L60.3 Pain in both feet M79.671; M79.672 Metatarsalgia of both feet M77.41; M77.42 Pes planus of both feet M21.41; M21.42 Nail disorder L60.9 CPT Codes Skin Debridement - CPT: 17310-Dgubgwyqveu of Nail 6+ ([id number]) Time Spent (min) 38 Comment 8 mins for procedure
== END 2025-07-21 12:03 | disposition home or self-care (01) ==
LOC: HO.HPODS 11:22
PROVIDERS: PCP Physician Assistant; Visit Provider Student in an Organized Health Care Education/Training Program
DX: B35.1 Tinea unguium (principal); L60.3 Nail dystrophy; M79.671 Pain in right foot; M79.672 Pain in left foot; M77.41 Metatarsalgia, right foot; M77.42 Metatarsalgia, left foot; M21.41 Flat foot [pes planus] (acquired), right foot; M21.42 Flat foot [pes planus] (acquired), left foot; L60.9 Nail disorder, unspecified
CPT/HCPCS: 11721; 99213

== ENCOUNTER → 2025-07-21 11:22 | Outpatient (BNVA) | payer OTHER, SELFPAY | PROVIDERS: PCP Physician Assistant; Visit Provider Student in an Organized Health Care Education/Training Program | DX: B35.1 Tinea unguium (principal); L60.3 Nail dystrophy; L60.9 Nail disorder, unspecified; M21.41 Flat foot [pes planus] (acquired), right foot; M21.42 Flat foot [pes planus] (acquired), left foot; M77.41 Metatarsalgia, right foot; M77.42 Metatarsalgia, left foot | CPT/HCPCS: 11721; 99212 ==